=== PATIENT | female | born 1945 | race Caucasian/White ===

== ENCOUNTER 2020-08-28 11:13 | Inpatient (IN) | payer OTHER ==
[2020-08-28 11:42] VITALS: BMI 21.0
[2020-08-28] MEDS ORDERED: ACETAMINOPHEN 1000 MG/100 ML VIAL (NON FORMULARY) IVPB ONE (11:52)
[2020-08-28] MEDS ORDERED: morphine CARPU-JECT 2 MG/1 ML DISP.SYRIN IVPUSH ONE (12:01)
[2020-08-28] MEDS ORDERED: ACETAMINOPHEN INJECTION 100 ML IVPB ONE (12:08)
[2020-08-28] MEDS ORDERED: MORPHINE SULFATE 2 MG/ML VIAL ONE (12:08)
[2020-08-28 12:46] LABS: BASO % 0.3 % (0-2.0); EOS % 0.7 % (0-4.5); HEMATOCRIT 28.1 % (32.4-45.2); HEMOGLOBIN 9.7 GM/dL (10.7-15.3); LYMPH % 9.6 % (8-40); MCH 32.2 pg (25.7-33.7); MCHC 34.5 g/dl (32.0-36.0); MEAN CELL VOLUME 93.4 fl (80-96); MONO % 11.3 % (3.8-10.2); NEUT % 78.1 % (42.8-82.8); PLATELET COUNT 171 K/MM3 (134-434); WHITE BLOOD COUNT 9.8 K/mm3 (4.0-10.0)
[2020-08-28 12:54] LABS: INR 1.03 (0.83-1.09); PROTHROMBIN TIME (PATIENT) 12.6 SEC (9.7-13.0)
[2020-08-28 12:56] LABS: ACTIVATED PTT 31.4 SECONDS (25.2-36.5)
[2020-08-28 13:18] LABS: CHLORIDE 104 mmol/L (98-107); SODIUM 138 mmol/L (136-145)
[2020-08-28 13:20] LABS: CALCIUM 8.3 mg/dL (8.5-10.1)
[2020-08-28 13:21] LABS: ALBUMIN 2.6 g/dl (3.4-5.0); ANION GAP 4 MMOL/L (8-16); BLOOD UREA NITROGEN 16.9 mg/dL (7-18); CO2 30 mmol/L (21-32); GLUCOSE,RANDOM 178 mg/dL (74-106); MAGNESIUM 2.2 mg/dL (1.8-2.4)
[2020-08-28 13:24] LABS: CREATININE 0.4 mg/dL (0.55-1.3); SGOT/AST 25 U/L (15-37); SGPT/ALT 23 U/L (13-61)
[2020-08-28 13:25] LABS: BILIRUBIN,TOTAL 1.1 mg/dL (0.2-1); TOT PROT 5.8 g/dl (6.4-8.2)
[2020-08-28 13:26] LABS: ALK PHOS 52 U/L (45-117)
[2020-08-28] MEDS: INSULIN SLIDING SCALE (NOVOLOG) 1 VIAL SQ SCH (17:28)
[2020-08-29] MEDS: CARVEDILOL 6.25 MG TABLET (FP) PO SCH ×3 (00:08→22:04)
[2020-08-29] MEDS: HEPARIN NA (PORCINE) 5,000 UNITS/ML 1ML VIAL SQ SCH ×3 (00:08→22:04)
[2020-08-29] MEDS: GABAPENTIN 300 MG CAPSULE PO SCH ×4 (00:08→22:04)
[2020-08-29] MEDS: DIVALPROEX NA *ER* EXTEND REL 250 MG TABLET.SA PO SCH ×3 (00:08→22:04)
[2020-08-29] MEDS: ACETAMINOPHEN 325 MG TABLET (FP) PO PRN ×2 (00:09→22:05)
[2020-08-29] MEDS: INSULIN SLIDING SCALE (NOVOLOG) 1 VIAL SQ SCH ×5 (00:20→22:36)
[2020-08-29] MEDS: traMADol HCL 50 MG TABLET PO PRN ×3 (01:12→16:28)
[2020-08-29] MEDS ORDERED: DEXTROSE 50%-WATER - 25 GM/50 ML VIAL IVPUSH ONE (06:46)
[2020-08-29] MEDS ORDERED: glipiZIDE-XL 2.5 MG TAB.ER.24 PO SCH (07:00)
[2020-08-29] MEDS ORDERED: DEXTROSE 50%-WATER - 25 GM/50 ML VIAL ONE (07:22)
[2020-08-29 07:29] LABS: HEMATOCRIT 28.1 % (32.4-45.2); HEMOGLOBIN 9.5 GM/dL (10.7-15.3); MCH 31.9 pg (25.7-33.7); MCHC 33.8 g/dl (32.0-36.0); MEAN CELL VOLUME 94.5 fl (80-96); MEAN PLT VOLUME 7.5 fl (7.5-11.1); PLATELET COUNT 213 K/MM3 (134-434); RBC 2.97 M/mm3 (3.60-5.2); WHITE BLOOD COUNT 6.9 K/mm3 (4.0-10.0)
[2020-08-29 08:01] LABS: ALBUMIN 2.6 g/dl (3.4-5.0); CALCIUM 8.4 mg/dL (8.5-10.1)
[2020-08-29 08:02] LABS: BLOOD UREA NITROGEN 19.5 mg/dL (7-18)
[2020-08-29 08:03] LABS: CREATININE 0.5 mg/dL (0.55-1.3)
[2020-08-29 08:05] LABS: BILIRUBIN,TOTAL 1.1 mg/dL (0.2-1); TOT PROT 5.9 g/dl (6.4-8.2)
[2020-08-29] MEDS ORDERED: INSULIN (NOVOLOG) ASPART 100 UNITS/ML 10ML VIAL ONE (09:23)
[2020-08-29] MEDS: DEXTROSE 5%-LACTATED RINGERS 1,000 ML IV SCH (09:45)
[2020-08-29] MEDS: PANTOPRAZOLE 40 MG TABLET PO SCH (10:15)
[2020-08-30] MEDS: INSULIN SLIDING SCALE (NOVOLOG) 1 VIAL SQ SCH ×4 (06:25→23:48)
[2020-08-30] MEDS: GABAPENTIN 300 MG CAPSULE PO SCH ×3 (06:27→23:43)
[2020-08-30] MEDS: PANTOPRAZOLE 40 MG TABLET PO SCH (09:31)
[2020-08-30] MEDS: DEXTROSE 5%-LACTATED RINGERS 1,000 ML IV SCH ×2 (09:31→19:35)
[2020-08-30] MEDS: CARVEDILOL 6.25 MG TABLET (FP) PO SCH ×2 (09:31→23:43)
[2020-08-30] MEDS: DIVALPROEX NA *ER* EXTEND REL 250 MG TABLET.SA PO SCH ×2 (09:31→23:44)
[2020-08-30] MEDS: HEPARIN NA (PORCINE) 5,000 UNITS/ML 1ML VIAL SQ SCH (09:32)
[2020-08-30] MEDS ORDERED: MIDAZOLAM HCL 2 MG/2 ML SINGLE DOSE VIAL ONE (14:44)
[2020-08-30] MEDS ORDERED: ceFAZolin SODIUM 1 GM VIAL IVPB ONE (15:25)
[2020-08-30] MEDS ORDERED: TRANEXAMIC ACID 1000 MG/10 ML VIAL ONE (15:35)
[2020-08-30] MEDS ORDERED: ONDANSETRON 4 MG/2 ML VIAL IVPUSH PRN (18:19)
[2020-08-30] MEDS ORDERED: PROMETHAZINE HCL 25 MG/1 ML VIAL IVPUSH PRN (18:19)
[2020-08-30] MEDS: oxyCODONE HCL 5 MG TABLET PO PRN (23:44)
[2020-08-31] MEDS ORDERED: ceFAZolin SODIUM 1 GM VIAL ONE ×3 (01:59→18:15)
[2020-08-31] MEDS ORDERED: DEXTROSE 5%-WATER - 50 ML IVPB ONE ×3 (01:59→18:15)
[2020-08-31] MEDS: CEFAZOLIN 1 GM in DEXTROSE 5%-WATER - 1 GM/50 ML IVPB IVPB SCH ×3 (02:32→18:23)
[2020-08-31] MEDS: DEXTROSE 5%-LACTATED RINGERS 1,000 ML IV SCH (05:41)
[2020-08-31] MEDS: GABAPENTIN 300 MG CAPSULE PO SCH ×3 (06:33→21:25)
[2020-08-31] MEDS: INSULIN SLIDING SCALE (NOVOLOG) 1 VIAL SQ SCH ×4 (06:33→21:39)
[2020-08-31] MEDS: oxyCODONE HCL 5 MG TABLET PO PRN (06:36)
[2020-08-31 07:58] LABS: HEMATOCRIT 23.5 % (32.4-45.2); HEMOGLOBIN 7.7 GM/dL (10.7-15.3); MCH 31.2 pg (25.7-33.7); MEAN CELL VOLUME 94.5 fl (80-96); MEAN PLT VOLUME 7.4 fl (7.5-11.1); PLATELET COUNT 234 K/MM3 (134-434); RBC 2.49 M/mm3 (3.60-5.2); RDW 14.2 % (11.6-15.6); WHITE BLOOD COUNT 9.9 K/mm3 (4.0-10.0)
[2020-08-31 08:12] LABS: ALBUMIN 2.2 g/dl (3.4-5.0); BLOOD UREA NITROGEN 6.4 mg/dL (7-18); CALCIUM 7.9 mg/dL (8.5-10.1)
[2020-08-31 08:16] LABS: CREATININE 0.5 mg/dL (0.55-1.3)
[2020-08-31 08:18] LABS: TOT PROT 4.8 g/dl (6.4-8.2)
[2020-08-31] MEDS: PANTOPRAZOLE 40 MG TABLET PO SCH (09:50)
[2020-08-31] MEDS: CARVEDILOL 6.25 MG TABLET (FP) PO SCH ×2 (09:50→21:38)
[2020-08-31] MEDS: CHOLECALCIFEROL (VIT D3) 1,000 UNIT (25 MCG) TABLET PO SCH (09:50)
[2020-08-31] MEDS: DIVALPROEX NA *ER* EXTEND REL 250 MG TABLET.SA PO SCH ×2 (09:51→21:27)
[2020-08-31] MEDS ORDERED: FERRIC CARBOXYMALTOSE 750 MG in SODIUM CHLORIDE 250 ML IVPB ONE (13:25)
[2020-08-31] MEDS: ENOXAPARIN NA (PORCINE) 40 MG/0.4 ML DISP.SYRIN SQ SCH (18:23)
[2020-08-31] MEDS ORDERED: SODIUM CHLORIDE 250 ML IV STA (21:19)
[2020-08-31] MEDS: traMADol HCL 50 MG TABLET PO PRN (21:25)
[2020-09-01] MEDS ORDERED: SODIUM CHLORIDE 1,000 ML IV SCH (01:30)
[2020-09-01] MEDS: INSULIN SLIDING SCALE (NOVOLOG) 1 VIAL SQ SCH ×4 (06:06→22:59)
[2020-09-01] MEDS: GABAPENTIN 300 MG CAPSULE PO SCH ×3 (06:07→21:53)
[2020-09-01 07:25] LABS: MCH 31.8 pg (25.7-33.7); MCHC 34.1 g/dl (32.0-36.0); MEAN CELL VOLUME 93.3 fl (80-96); MEAN PLT VOLUME 7.4 fl (7.5-11.1); PLATELET COUNT 213 K/MM3 (134-434); RBC 2.16 M/mm3 (3.60-5.2); RDW 14.5 % (11.6-15.6); WHITE BLOOD COUNT 14.3 K/mm3 (4.0-10.0)
[2020-09-01 07:43] LABS: HEMOGLOBIN 6.9 GM/dL (10.7-15.3)
[2020-09-01 07:44] LABS: HEMATOCRIT 20.1 % (32.4-45.2)
[2020-09-01 08:25] LABS: BLOOD UREA NITROGEN 6.6 mg/dL (7-18)
[2020-09-01 08:29] LABS: CREATININE 0.4 mg/dL (0.55-1.3)
[2020-09-01] MEDS: traMADol HCL 50 MG TABLET PO PRN ×2 (08:54→18:04)
[2020-09-01] MEDS: PANTOPRAZOLE 40 MG TABLET PO SCH (09:01)
[2020-09-01] MEDS: CARVEDILOL 6.25 MG TABLET (FP) PO SCH (09:01)
[2020-09-01] MEDS: ENOXAPARIN NA (PORCINE) 40 MG/0.4 ML DISP.SYRIN SQ SCH (09:01)
[2020-09-01] MEDS: CHOLECALCIFEROL (VIT D3) 1,000 UNIT (25 MCG) TABLET PO SCH (09:01)
[2020-09-01] MEDS: DIVALPROEX NA *ER* EXTEND REL 250 MG TABLET.SA PO SCH ×2 (09:01→21:53)
[2020-09-01] MEDS ORDERED: FUROSEMIDE 40 MG/4 ML INJECTABLE VIAL IVPUSH ONE (10:45)
[2020-09-01] MEDS ORDERED: POTASSIUM CHLORIDE TABS 10 MEQ TABLET.ER (FP) PO ONE (11:00)
[2020-09-01] MEDS ORDERED: KCL 10 MEQ IVPB 10 MEQ/100 ML INFUS.BAG IVPB SCH (11:00)
[2020-09-01] MEDS: ACETAMINOPHEN 325 MG TABLET (FP) PO PRN (21:53)
[2020-09-02] MEDS: CARVEDILOL 6.25 MG TABLET (FP) PO SCH ×3 (00:17→22:38)
[2020-09-02] MEDS: GABAPENTIN 300 MG CAPSULE PO SCH ×3 (06:43→22:38)
[2020-09-02] MEDS: INSULIN SLIDING SCALE (NOVOLOG) 1 VIAL SQ SCH ×4 (06:48→22:42)
[2020-09-02 07:36] LABS: HEMATOCRIT 35.8 % (32.4-45.2); HEMOGLOBIN 12.3 GM/dL (10.7-15.3); MCH 31.6 pg (25.7-33.7); MCHC 34.3 g/dl (32.0-36.0); MEAN PLT VOLUME 7.2 fl (7.5-11.1); PLATELET COUNT 198 K/MM3 (134-434); RBC 3.89 M/mm3 (3.60-5.2); RDW 15.1 % (11.6-15.6); WHITE BLOOD COUNT 12.3 K/mm3 (4.0-10.0)
[2020-09-02 08:02] LABS: CALCIUM 8.4 mg/dL (8.5-10.1)
[2020-09-02 08:03] LABS: BLOOD UREA NITROGEN 6.6 mg/dL (7-18)
[2020-09-02 08:06] LABS: CREATININE 0.3 mg/dL (0.55-1.3)
[2020-09-02] MEDS: MULTIVIT-MINERALS ORAL LIQUID PO SCH (09:00)
[2020-09-02] MEDS: DIVALPROEX NA *ER* EXTEND REL 250 MG TABLET.SA PO SCH ×2 (09:01→22:38)
[2020-09-02] MEDS: traMADol HCL 50 MG TABLET PO PRN ×3 (09:02→22:39)
[2020-09-02] MEDS: ENOXAPARIN NA (PORCINE) 40 MG/0.4 ML DISP.SYRIN SQ SCH (09:02)
[2020-09-02] MEDS: CHOLECALCIFEROL (VIT D3) 1,000 UNIT (25 MCG) TABLET PO SCH (09:03)
[2020-09-02] MEDS: PANTOPRAZOLE 40 MG TABLET PO SCH (09:03)
[2020-09-02] MEDS: ACETAMINOPHEN 325 MG TABLET (FP) PO PRN ×2 (12:18→20:16)
[2020-09-02] MEDS ORDERED: SODIUM CHLORIDE 250 ML IV ONE (15:45)
[2020-09-02] MEDS: SODIUM CHLORIDE 1,000 ML IV SCH (15:50)
[2020-09-02 19:16] LABS: EPI CELLS 29 /uL (0-25.1); HYALINE CASTS 12 /uL (0-3.1); PH,URINE 5.5 (5.0-8.0); URINE APPEARANCE CLOUDY; URINE BILIRUBIN 1+ (NEGATIVE); URINE COLOR ORANGE; URINE GLUCOSE (UA) NEGATIVE (NEGATIVE); URINE KETONE NEGATIVE (NEGATIVE); URINE LEUK ESTERASE 1+ (NEGATIVE); URINE NITRITE POSITIVE (NEGATIVE); URINE PROTEIN TRACE (NEGATIVE); URINE RBC 9 /uL (0-23.9); URINE WBC 162 /uL (0-25.8)
[2020-09-02 20:22] LABS: URINE BACTERIA 24.8 /uL (0-1359)
[2020-09-03] MEDS: traMADol HCL 50 MG TABLET PO PRN ×3 (03:35→17:00)
[2020-09-03] MEDS: SODIUM CHLORIDE 1,000 ML IV SCH (04:00)
[2020-09-03] MEDS: INSULIN SLIDING SCALE (NOVOLOG) 1 VIAL SQ SCH ×4 (06:13→22:34)
[2020-09-03] MEDS: GABAPENTIN 300 MG CAPSULE PO SCH ×3 (06:13→22:23)
[2020-09-03 07:57] LABS: HEMATOCRIT 35.2 % (32.4-45.2); MCH 31.4 pg (25.7-33.7); MCHC 34.1 g/dl (32.0-36.0); MEAN CELL VOLUME 92.3 fl (80-96); MEAN PLT VOLUME 7.2 fl (7.5-11.1); PLATELET COUNT 198 K/MM3 (134-434); RBC 3.81 M/mm3 (3.60-5.2); WHITE BLOOD COUNT 11.2 K/mm3 (4.0-10.0)
[2020-09-03 08:11] LABS: ALBUMIN 1.8 g/dl (3.4-5.0)
[2020-09-03 08:12] LABS: BLOOD UREA NITROGEN 12.2 mg/dL (7-18); CALCIUM 7.9 mg/dL (8.5-10.1)
[2020-09-03 08:14] LABS: CREATININE 0.3 mg/dL (0.55-1.3)
[2020-09-03 08:16] LABS: BILIRUBIN,TOTAL 1.4 mg/dL (0.2-1); TOT PROT 4.5 g/dl (6.4-8.2)
[2020-09-03] MEDS: ENOXAPARIN NA (PORCINE) 40 MG/0.4 ML DISP.SYRIN SQ SCH (09:32)
[2020-09-03] MEDS: CHOLECALCIFEROL (VIT D3) 1,000 UNIT (25 MCG) TABLET PO SCH (09:33)
[2020-09-03] MEDS: PANTOPRAZOLE 40 MG TABLET PO SCH (09:33)
[2020-09-03] MEDS: CARVEDILOL 6.25 MG TABLET (FP) PO SCH ×2 (09:33→22:21)
[2020-09-03] MEDS: MULTIVIT-MINERALS ORAL LIQUID PO SCH (09:34)
[2020-09-03] MEDS: DIVALPROEX NA *ER* EXTEND REL 250 MG TABLET.SA PO SCH ×2 (09:34→22:24)
[2020-09-03] MEDS ORDERED: POTASSIUM CHLORIDE TABS 20 MEQ TABLET.ER (FP) PO ONE (11:00)
[2020-09-03] MEDS ORDERED: ONDANSETRON 4 MG/2 ML VIAL IVPUSH PRN (15:49)
[2020-09-03] MEDS ORDERED: ALBUTEROL SO4 2.5/IPRATROPIUM 0.5 INH SOL 3 ML VIAL.NEB. NEB PRN (16:15)
[2020-09-03] MEDS: ACETAMINOPHEN 325 MG TABLET (FP) PO PRN (22:29)
[2020-09-04] MEDS: GABAPENTIN 300 MG CAPSULE PO SCH ×3 (06:48→22:35)
[2020-09-04] MEDS: INSULIN SLIDING SCALE (NOVOLOG) 1 VIAL SQ SCH ×4 (06:54→22:36)
[2020-09-04] MEDS: CHOLECALCIFEROL (VIT D3) 1,000 UNIT (25 MCG) TABLET PO SCH (09:12)
[2020-09-04] MEDS: traMADol HCL 50 MG TABLET PO PRN (09:12)
[2020-09-04] MEDS: CARVEDILOL 6.25 MG TABLET (FP) PO SCH ×2 (09:12→22:35)
[2020-09-04] MEDS: PANTOPRAZOLE 40 MG TABLET PO SCH (09:12)
[2020-09-04] MEDS: DIVALPROEX NA *ER* EXTEND REL 250 MG TABLET.SA PO SCH ×2 (09:14→22:36)
[2020-09-04] MEDS: ENOXAPARIN NA (PORCINE) 40 MG/0.4 ML DISP.SYRIN SQ SCH (09:24)
[2020-09-04] MEDS: MULTIVIT-MINERALS ORAL LIQUID PO SCH (09:29)
[2020-09-04 12:44] LABS: BASO % 0.2 % (0-2.0); HEMATOCRIT 33.5 % (32.4-45.2); HEMOGLOBIN 10.9 GM/dL (10.7-15.3); LYMPH % 9.1 % (8-40); MCH 31.1 pg (25.7-33.7); MCHC 32.5 g/dl (32.0-36.0); MEAN CELL VOLUME 95.6 fl (80-96); MEAN PLT VOLUME 7.5 fl (7.5-11.1); MONO % 11.3 % (3.8-10.2); NEUT % 76.4 % (42.8-82.8); PLATELET COUNT 185 K/MM3 (134-434); RDW 15.4 % (11.6-15.6); WHITE BLOOD COUNT 6.6 K/mm3 (4.0-10.0)
[2020-09-04 13:05] LABS: BLOOD UREA NITROGEN 12.3 mg/dL (7-18)
[2020-09-04 13:09] LABS: CREATININE 0.4 mg/dL (0.55-1.3)
[2020-09-04] MEDS ORDERED: POTASSIUM CHLORIDE TABS 20 MEQ TABLET.ER (FP) PO ONE (13:56)
[2020-09-05] MEDS: GABAPENTIN 300 MG CAPSULE PO SCH ×3 (06:34→22:53)
[2020-09-05] MEDS: INSULIN SLIDING SCALE (NOVOLOG) 1 VIAL SQ SCH ×4 (06:35→22:57)
[2020-09-05] MEDS: traMADol HCL 50 MG TABLET PO PRN ×2 (08:06→18:42)
[2020-09-05 08:49] LABS: CALCIUM 8.1 mg/dL (8.5-10.1)
[2020-09-05 08:51] LABS: BLOOD UREA NITROGEN 8.3 mg/dL (7-18)
[2020-09-05 08:54] LABS: CREATININE 0.2 mg/dL (0.55-1.3)
[2020-09-05] MEDS ORDERED: PT OWN MED DRAWER 7, Y5N ONE ×2 (09:37→22:51)
[2020-09-05] MEDS: PANTOPRAZOLE 40 MG TABLET PO SCH (09:54)
[2020-09-05] MEDS: CHOLECALCIFEROL (VIT D3) 1,000 UNIT (25 MCG) TABLET PO SCH (09:55)
[2020-09-05] MEDS: DIVALPROEX NA *ER* EXTEND REL 250 MG TABLET.SA PO SCH ×2 (09:55→22:53)
[2020-09-05] MEDS: ENOXAPARIN NA (PORCINE) 40 MG/0.4 ML DISP.SYRIN SQ SCH (09:55)
[2020-09-05] MEDS: CARVEDILOL 6.25 MG TABLET (FP) PO SCH ×2 (09:55→22:53)
[2020-09-05] MEDS: ACETAMINOPHEN 325 MG TABLET (FP) PO PRN (12:03)
[2020-09-05] MEDS: MULTIVIT-MINERALS ORAL LIQUID PO SCH (13:51)
[2020-09-06] MEDS: GABAPENTIN 300 MG CAPSULE PO SCH (05:32)
[2020-09-06] MEDS: INSULIN SLIDING SCALE (NOVOLOG) 1 VIAL SQ SCH ×2 (06:10→11:44)
[2020-09-06 07:40] VITALS: BP 141/76; PULSE 88; TEMP 97.7
[2020-09-06] MEDS: ENOXAPARIN NA (PORCINE) 40 MG/0.4 ML DISP.SYRIN SQ SCH (08:59)
[2020-09-06] MEDS: CHOLECALCIFEROL (VIT D3) 1,000 UNIT (25 MCG) TABLET PO SCH (09:00)
[2020-09-06] MEDS: CARVEDILOL 6.25 MG TABLET (FP) PO SCH (09:00)
[2020-09-06] MEDS: PANTOPRAZOLE 40 MG TABLET PO SCH (09:00)
[2020-09-06] MEDS: DIVALPROEX NA *ER* EXTEND REL 250 MG TABLET.SA PO SCH (09:01)
[2020-09-06] MEDS: MULTIVIT-MINERALS ORAL LIQUID PO SCH (09:10)
== END 2020-09-06 12:44 | disposition home health service (06) | DRG 522 ==
LOC: JER 11:13 → JERBED 15:14 → J7W 23:52
PROVIDERS: ADMIT Family Medicine; ATTEND Family Medicine
PROC: 0SRS0J9 Replacement of Left Hip Joint, Femoral Surface with Synthetic Substitute, Cemented, Open Approach (ICD-10-PCS; principal; 2020-08-30 14:30)
PROC: 30233N1 Transfusion of Nonautologous Red Blood Cells into Peripheral Vein, Percutaneous Approach (ICD-10-PCS; 2020-09-01)
DX: S72.112A Displaced fracture of greater trochanter of left femur, initial encounter for closed fracture (principal); J98.11 Atelectasis; D62 Acute posthemorrhagic anemia; J95.89 Other postprocedural complications and disorders of respiratory system, not elsewhere classified; S72.092A Other fracture of head and neck of left femur, initial encounter for closed fracture; S72.122A Displaced fracture of lesser trochanter of left femur, initial encounter for closed fracture; E11.9 Type 2 diabetes mellitus without complications; I10 Essential (primary) hypertension; E78.5 Hyperlipidemia, unspecified; K21.9 Gastro-esophageal reflux disease without esophagitis; F03.90 Unspecified dementia, unspecified severity, without behavioral disturbance, psychotic disturbance, mood disturbance, and anxiety; K59.09 Other constipation; E87.6 Hypokalemia; R50.82 Postprocedural fever; R09.02 Hypoxemia; Z74.01 Bed confinement status; R00.0 Tachycardia, unspecified; Z88.0 Allergy status to penicillin; Y83.8 Other surgical procedures as the cause of abnormal reaction of the patient, or of later complication, without mention of misadventure at the time of the procedure; I69.322 Dysarthria following cerebral infarction
CPT/HCPCS: 36415; 36430; 36511; 70450-TC; 71045-TC-FY; 72125-TC; 72192-TC; 73523-TC-FY; 73562-TC-LT-FY; 74019-TC-FY; 80048; 80053; 81003; 82550; 82962; 83036; 83540; 83550; 83735; 84100; 84484; 85025; 85027; 85610; 85730; 86850; 86900; 86901; 86922; 87040; 87086; 88305-TC; 88311-TC; 93005; 93010; 93306-TC; 93880-TC; 94640; 94760; 94761; 97116-GP; 97162-GP; 99285-25; C9803; J0131; J1439; J1644; P9038; P9058; U0003; U0005

== ENCOUNTER 2020-10-13 11:21 | Inpatient (IN) | payer OTHER ==
[2020-10-13 12:43] VITALS: BMI 18.0
[2020-10-13] MEDS ORDERED: SODIUM CHLORIDE 500 ML IV STA (13:08)
[2020-10-13] MEDS ORDERED: traMADol HCL 50 MG TABLET PO PRN (14:40)
[2020-10-13] MEDS ORDERED: D5-1/2NS+20 MEQ KCL - 20 MEQ/1,000 ML INFUS.BAG IV SCH (14:45)
[2020-10-13 14:47] LABS: HEMATOCRIT 39.3 % (32.4-45.2); HEMOGLOBIN 13.4 GM/dL (10.7-15.3); LYMPH % 3.4 % (8-40); MEAN PLT VOLUME 6.9 fl (7.5-11.1); MONO % 6.1 % (3.8-10.2); NEUT % 90.5 % (42.8-82.8); PLATELET COUNT 240 K/MM3 (134-434); RBC 4.18 M/mm3 (3.60-5.2); RDW 14.5 % (11.6-15.6); WHITE BLOOD COUNT 18.8 K/mm3 (4.0-10.0)
[2020-10-13 14:55] LABS: INR 1.16 (0.83-1.09); PROTHROMBIN TIME (PATIENT) 14.2 SEC (9.7-13.0)
[2020-10-13 14:57] LABS: ACTIVATED PTT 29.4 SECONDS (25.2-36.5)
[2020-10-13 15:03] LABS: EPI CELLS 14 /uL (0-25.1); HYALINE CASTS 11 /uL (0-3.1); PH,URINE 5.5 (5.0-8.0); URINE APPEARANCE TURBID; URINE BACTERIA 4516 /uL (0-1359); URINE BILIRUBIN 1+ (NEGATIVE); URINE COLOR DK YELLOW; URINE GLUCOSE (UA) NEGATIVE (NEGATIVE); URINE KETONE TRACE (NEGATIVE); URINE LEUK ESTERASE 1+ (NEGATIVE); URINE NITRITE POSITIVE (NEGATIVE); URINE PROTEIN 1+ (NEGATIVE); URINE RBC 8 /uL (0-23.9); URINE WBC 311 /uL (0-25.8)
[2020-10-13 15:18] LABS: ALBUMIN 2.5 g/dl (3.4-5.0); CALCIUM 8.6 mg/dL (8.5-10.1)
[2020-10-13 15:19] LABS: BLOOD UREA NITROGEN 19.7 mg/dL (7-18)
[2020-10-13 15:22] LABS: CREATININE 0.4 mg/dL (0.55-1.3)
[2020-10-13 15:23] LABS: BILIRUBIN,TOTAL 1.6 mg/dL (0.2-1); TOT PROT 6.3 g/dl (6.4-8.2)
[2020-10-13] MEDS ORDERED: CEFEPIME HCL/D5W 2 GM/50 ML BAG IVPB ONE (15:37)
[2020-10-13] MEDS ORDERED: VANCOMYCIN 1 GM in D5W (PRE-DOCKED) 1,000 MG/250 ML IVPB ONE (15:40)
[2020-10-13] MEDS ORDERED: CEFEPIME 2 GM/100 ML BAG IVPB ONE (16:09)
[2020-10-13] MEDS ORDERED: VANCOMYCIN 1 GRAM (PRE-DOCKED) 1,000 MG/250 ML BAG IVPB ONE (18:09)
[2020-10-13] MEDS: GABAPENTIN 300 MG CAPSULE PO SCH (21:15)
[2020-10-13] MEDS: CARVEDILOL 6.25 MG TABLET (FP) PO SCH (21:15)
[2020-10-13] MEDS: HEPARIN NA (PORCINE) 5,000 UNITS/ML 1ML VIAL SQ SCH (21:15)
[2020-10-13] MEDS: DIVALPROEX NA *ER* EXTEND REL 250 MG TABLET.SA PO SCH (21:15)
[2020-10-13] MEDS ORDERED: ATORVASTATIN CA 10 MG TABLET (FP) PO SCH (22:00)
[2020-10-14 08:37] LABS: BASO % 0.1 % (0-2.0); EOS % 0.1 % (0-4.5); HEMATOCRIT 32.6 % (32.4-45.2); HEMOGLOBIN 11.1 GM/dL (10.7-15.3); MCH 32.2 pg (25.7-33.7); MCHC 34.2 g/dl (32.0-36.0); MEAN CELL VOLUME 94.3 fl (80-96); MEAN PLT VOLUME 7.3 fl (7.5-11.1); MONO % 7.7 % (3.8-10.2); NEUT % 87.1 % (42.8-82.8); PLATELET COUNT 163 K/MM3 (134-434); RBC 3.46 M/mm3 (3.60-5.2); RDW 14.5 % (11.6-15.6); WHITE BLOOD COUNT 10.4 K/mm3 (4.0-10.0)
[2020-10-14 09:17] LABS: CALCIUM 7.9 mg/dL (8.5-10.1)
[2020-10-14 09:18] LABS: BLOOD UREA NITROGEN 14.8 mg/dL (7-18)
[2020-10-14 09:21] LABS: CREATININE 0.2 mg/dL (0.55-1.3)
[2020-10-14 09:22] LABS: BILIRUBIN,TOTAL 0.6 mg/dL (0.2-1); TOT PROT 4.9 g/dl (6.4-8.2)
[2020-10-14] MEDS ORDERED: CEFEPIME IVPB SCH (10:00)
[2020-10-14] MEDS ORDERED: WATER IVPB SCH (10:00)
[2020-10-14] MEDS ORDERED: DEXTROSE 5% IVPB SCH (10:00)
[2020-10-14] MEDS ORDERED: PANTOPRAZOLE 40 MG TABLET PO SCH (10:00)
[2020-10-14] MEDS ORDERED: PT OWN MED DRAWER 7, Y5N ONE ×4 (10:52→20:22)
[2020-10-14] MEDS ORDERED: DEXTROSE 5%-WATER 100 ML IVPB ONE ×2 (10:52→20:22)
[2020-10-14] MEDS ORDERED: CEFEPIME HCL 1 GM VIAL (RESTRICTED TO ID) ONE ×2 (10:52→20:22)
[2020-10-14] MEDS: CARVEDILOL 6.25 MG TABLET (FP) PO SCH ×2 (10:55→21:18)
[2020-10-14] MEDS: DIVALPROEX NA *ER* EXTEND REL 250 MG TABLET.SA PO SCH ×2 (10:55→21:02)
[2020-10-14] MEDS: GABAPENTIN 300 MG CAPSULE PO SCH ×2 (10:55→21:02)
[2020-10-14] MEDS: HEPARIN NA (PORCINE) 5,000 UNITS/ML 1ML VIAL SQ SCH ×2 (10:56→21:03)
[2020-10-14] MEDS: KCL 10 MEQ IVPB 10 MEQ/100 ML INFUS.BAG IVPB SCH ×2 (12:02→17:15)
[2020-10-14] MEDS ORDERED: LIDOCAINE HCL/PF 2% SDV 5ML VIAL ONE (12:51)
[2020-10-14] MEDS ORDERED: PROPOFOL 20 ML ONE (12:51)
[2020-10-14] MEDS ORDERED: ACETAMINOPHEN 500 MG TABLET (FP) PO PRN (13:46)
[2020-10-14] MEDS ORDERED: ONDANSETRON 4 MG/2 ML VIAL IVPUSH PRN (15:22)
[2020-10-14] MEDS ORDERED: LACTATED RINGERS SOLUTION 1,000 ML IV SCH (15:30)
[2020-10-14] MEDS: LIDOCAINE 5% TOPICAL PATCH TP SCH (17:14)
[2020-10-14] MEDS: D5-1/2NS+20 MEQ KCL - 20 MEQ/1,000 ML INFUS.BAG IV SCH ×2 (17:16→23:24)
[2020-10-14] MEDS: CEFEPIME 1 GM in DEXTROSE 5%-WATER 1 GM/100 ML BAG IVPB SCH (21:01)
[2020-10-14] MEDS: ATORVASTATIN CA 10 MG TABLET (FP) PO SCH (21:02)
[2020-10-14] MEDS: LIDOCAINE PATCH REMOVAL MC SCH (21:06)
[2020-10-14] MEDS: INSULIN SLIDING SCALE (NOVOLOG) 1 VIAL SQ SCH (21:25)
[2020-10-15] MEDS: INSULIN SLIDING SCALE (NOVOLOG) 1 VIAL SQ SCH ×4 (06:05→21:04)
[2020-10-15 08:17] LABS: EOS % 0.8 % (0-4.5); HEMATOCRIT 32.3 % (32.4-45.2); HEMOGLOBIN 10.7 GM/dL (10.7-15.3); MCH 31.2 pg (25.7-33.7); MEAN CELL VOLUME 94.6 fl (80-96); MEAN PLT VOLUME 7.4 fl (7.5-11.1); MONO % 10.2 % (3.8-10.2); PLATELET COUNT 148 K/MM3 (134-434); RBC 3.41 M/mm3 (3.60-5.2); RDW 14.4 % (11.6-15.6); WHITE BLOOD COUNT 8.1 K/mm3 (4.0-10.0)
[2020-10-15 08:54] LABS: ALBUMIN 1.9 g/dl (3.4-5.0); BLOOD UREA NITROGEN 8.9 mg/dL (7-18); CALCIUM 7.8 mg/dL (8.5-10.1)
[2020-10-15 08:58] LABS: CREATININE 0.2 mg/dL (0.55-1.3)
[2020-10-15 08:59] LABS: TOT PROT 4.7 g/dl (6.4-8.2)
[2020-10-15 09:00] LABS: BILIRUBIN,TOTAL 0.7 mg/dL (0.2-1)
[2020-10-15] MEDS ORDERED: PT OWN MED DRAWER 7, Y5N ONE ×2 (10:55→20:35)
[2020-10-15] MEDS ORDERED: CEFEPIME HCL 1 GM VIAL (RESTRICTED TO ID) ONE ×2 (10:55→20:35)
[2020-10-15] MEDS ORDERED: DEXTROSE 5%-WATER 100 ML IVPB ONE ×2 (10:56→20:35)
[2020-10-15] MEDS: CEFEPIME 1 GM in DEXTROSE 5%-WATER 1 GM/100 ML BAG IVPB SCH ×2 (11:00→21:01)
[2020-10-15] MEDS: LIDOCAINE 5% TOPICAL PATCH TP SCH (11:00)
[2020-10-15] MEDS: CARVEDILOL 6.25 MG TABLET (FP) PO SCH ×2 (11:01→21:01)
[2020-10-15] MEDS: PANTOPRAZOLE 40 MG TABLET PO SCH (11:01)
[2020-10-15] MEDS: HEPARIN NA (PORCINE) 5,000 UNITS/ML 1ML VIAL SQ SCH ×2 (11:01→21:00)
[2020-10-15] MEDS: GABAPENTIN 300 MG CAPSULE PO SCH ×2 (11:02→21:01)
[2020-10-15] MEDS: DIVALPROEX NA *ER* EXTEND REL 250 MG TABLET.SA PO SCH ×2 (11:02→21:01)
[2020-10-15] MEDS: SODIUM HYPOCHLORITE 0.25%- 473 ML BULK BOTTLE TP SCH (12:03)
[2020-10-15] MEDS: traMADol HCL 50 MG TABLET PO PRN (12:50)
[2020-10-15] MEDS: D5-1/2NS+20 MEQ KCL - 20 MEQ/1,000 ML INFUS.BAG IV SCH (15:11)
[2020-10-15] MEDS: ATORVASTATIN CA 10 MG TABLET (FP) PO SCH (21:01)
[2020-10-15] MEDS: LIDOCAINE PATCH REMOVAL MC SCH (21:01)
[2020-10-16] MEDS: INSULIN SLIDING SCALE (NOVOLOG) 1 VIAL SQ SCH ×3 (06:04→16:51)
[2020-10-16] MEDS: D5-1/2NS+20 MEQ KCL - 20 MEQ/1,000 ML INFUS.BAG IV SCH ×2 (07:03→23:16)
[2020-10-16] MEDS: LIDOCAINE 5% TOPICAL PATCH TP SCH (09:47)
[2020-10-16] MEDS: PANTOPRAZOLE 40 MG TABLET PO SCH (10:23)
[2020-10-16] MEDS: CARVEDILOL 6.25 MG TABLET (FP) PO SCH (10:23)
[2020-10-16] MEDS: DIVALPROEX NA *ER* EXTEND REL 250 MG TABLET.SA PO SCH (10:23)
[2020-10-16] MEDS: GABAPENTIN 300 MG CAPSULE PO SCH (10:23)
[2020-10-16] MEDS: SODIUM HYPOCHLORITE 0.25%- 473 ML BULK BOTTLE TP SCH (10:28)
[2020-10-16] MEDS ORDERED: DEXTROSE 5%-WATER 100 ML IVPB ONE ×2 (10:30→10:31)
[2020-10-16] MEDS ORDERED: CEFEPIME HCL 1 GM VIAL (RESTRICTED TO ID) ONE ×2 (10:30→10:31)
[2020-10-16] MEDS: CEFEPIME 1 GM in DEXTROSE 5%-WATER 1 GM/100 ML BAG IVPB SCH (10:34)
[2020-10-16] MEDS: HEPARIN NA (PORCINE) 5,000 UNITS/ML 1ML VIAL SQ SCH ×2 (10:35→22:43)
[2020-10-16] MEDS ORDERED: PT OWN MED DRAWER 7, Y5N ONE (20:43)
[2020-10-16] MEDS: LIDOCAINE PATCH REMOVAL MC SCH (22:43)
[2020-10-17] MEDS: CARVEDILOL 6.25 MG TABLET (FP) PO SCH ×3 (00:55→21:58)
[2020-10-17] MEDS: ATORVASTATIN CA 10 MG TABLET (FP) PO SCH ×2 (00:56→21:59)
[2020-10-17] MEDS: GABAPENTIN 300 MG CAPSULE PO SCH ×3 (00:56→21:59)
[2020-10-17] MEDS: DIVALPROEX NA *ER* EXTEND REL 250 MG TABLET.SA PO SCH (00:56)
[2020-10-17] MEDS: INSULIN SLIDING SCALE (NOVOLOG) 1 VIAL SQ SCH ×5 (00:57→21:59)
[2020-10-17 08:06] LABS: HEMATOCRIT 31.6 % (32.4-45.2); HEMOGLOBIN 10.7 GM/dL (10.7-15.3); MCH 31.4 pg (25.7-33.7); MCHC 33.7 g/dl (32.0-36.0); MEAN CELL VOLUME 93.2 fl (80-96); MEAN PLT VOLUME 7.7 fl (7.5-11.1); PLATELET COUNT 163 K/MM3 (134-434); RDW 14.4 % (11.6-15.6); WHITE BLOOD COUNT 6.3 K/mm3 (4.0-10.0)
[2020-10-17 08:31] LABS: CHLORIDE 100 mmol/L (98-107); SODIUM 141 mmol/L (136-145)
[2020-10-17 08:32] LABS: CALCIUM 7.3 mg/dL (8.5-10.1)
[2020-10-17 08:33] LABS: CO2 36 mmol/L (21-32); GLUCOSE,RANDOM 130 mg/dL (74-106); MAGNESIUM 1.8 mg/dL (1.8-2.4)
[2020-10-17 08:36] LABS: CREATININE < 0.2 mg/dL (0.55-1.3); PHOSPHOROUS 1.2 mg/dL (2.5-4.9)
[2020-10-17] MEDS ORDERED: cefTRIAXone SODIUM 1 GM VIAL ONE (08:57)
[2020-10-17] MEDS ORDERED: DEXTROSE 5%-WATER - 50 ML IVPB ONE (08:57)
[2020-10-17 08:59] LABS: ANION GAP 4 MMOL/L (8-16)
[2020-10-17] MEDS ORDERED: PT OWN MED DRAWER 7, Y5N ONE ×2 (09:00→09:34)
[2020-10-17] MEDS: CEFTRIAXONE 1 GM in DEXTROSE 5%-WATER - 50 ML IVPB SCH (09:08)
[2020-10-17] MEDS: PANTOPRAZOLE 40 MG TABLET PO SCH (09:08)
[2020-10-17] MEDS: HEPARIN NA (PORCINE) 5,000 UNITS/ML 1ML VIAL SQ SCH ×2 (09:08→21:58)
[2020-10-17] MEDS: traMADol HCL 50 MG TABLET PO PRN (09:18)
[2020-10-17] MEDS: LIDOCAINE 5% TOPICAL PATCH TP SCH (09:19)
[2020-10-17] MEDS: SODIUM HYPOCHLORITE 0.25%- 473 ML BULK BOTTLE TP SCH (09:38)
[2020-10-17] MEDS: KCL 10 MEQ IVPB 10 MEQ/100 ML INFUS.BAG IVPB SCH ×3 (09:40→12:33)
[2020-10-17] MEDS: DIVALPROEX SODIUM 125 MG SPRINKLE CAPS PO SCH ×2 (09:40→21:58)
[2020-10-17] MEDS: D5-1/2NS+20 MEQ KCL - 20 MEQ/1,000 ML INFUS.BAG IV SCH (14:54)
[2020-10-17 18:42] LABS: CALCIUM 7.4 mg/dL (8.5-10.1)
[2020-10-17 18:45] LABS: CREATININE 0.2 mg/dL (0.55-1.3)
[2020-10-17] MEDS: NAPH,MB-DB/K PH,MBDB POWDER PACKET PO SCH (21:59)
[2020-10-17] MEDS: LIDOCAINE PATCH REMOVAL MC SCH (22:02)
[2020-10-18] MEDS: D5-1/2NS+20 MEQ KCL - 20 MEQ/1,000 ML INFUS.BAG IV SCH ×3 (05:53→21:59)
[2020-10-18] MEDS: INSULIN SLIDING SCALE (NOVOLOG) 1 VIAL SQ SCH ×4 (06:55→21:36)
[2020-10-18 07:38] LABS: HEMATOCRIT 31.2 % (32.4-45.2); HEMOGLOBIN 10.4 GM/dL (10.7-15.3); MCH 31.1 pg (25.7-33.7); MCHC 33.3 g/dl (32.0-36.0); MEAN CELL VOLUME 93.2 fl (80-96); MEAN PLT VOLUME 7.4 fl (7.5-11.1); PLATELET COUNT 166 K/MM3 (134-434); RBC 3.34 M/mm3 (3.60-5.2); RDW 14.5 % (11.6-15.6); WHITE BLOOD COUNT 6.6 K/mm3 (4.0-10.0)
[2020-10-18 08:10] LABS: CHLORIDE 104 mmol/L (98-107); SODIUM 142 mmol/L (136-145)
[2020-10-18 08:13] LABS: ANION GAP 5 MMOL/L (8-16); CO2 34 mmol/L (21-32)
[2020-10-18 08:14] LABS: CALCIUM 7.3 mg/dL (8.5-10.1); GLUCOSE,RANDOM 131 mg/dL (74-106); MAGNESIUM 1.8 mg/dL (1.8-2.4)
[2020-10-18 08:17] LABS: PHOSPHOROUS 1.7 mg/dL (2.5-4.9)
[2020-10-18 08:18] LABS: CREATININE 0.2 mg/dL (0.55-1.3)
[2020-10-18 08:31] LABS: BLOOD UREA NITROGEN 2.2 mg/dL (7-18)
[2020-10-18] MEDS ORDERED: cefTRIAXone SODIUM 1 GM VIAL ONE (09:48)
[2020-10-18] MEDS ORDERED: DEXTROSE 5%-WATER - 50 ML IVPB ONE (09:49)
[2020-10-18] MEDS: NAPH,MB-DB/K PH,MBDB POWDER PACKET PO SCH ×2 (09:54→21:34)
[2020-10-18] MEDS: DIVALPROEX SODIUM 125 MG SPRINKLE CAPS PO SCH ×2 (09:54→21:34)
[2020-10-18] MEDS: LIDOCAINE 5% TOPICAL PATCH TP SCH (09:54)
[2020-10-18] MEDS: HEPARIN NA (PORCINE) 5,000 UNITS/ML 1ML VIAL SQ SCH ×2 (09:54→21:34)
[2020-10-18] MEDS: GABAPENTIN 300 MG CAPSULE PO SCH ×2 (09:55→21:34)
[2020-10-18] MEDS: PANTOPRAZOLE 40 MG TABLET PO SCH (09:55)
[2020-10-18] MEDS: CARVEDILOL 6.25 MG TABLET (FP) PO SCH ×2 (09:55→21:34)
[2020-10-18] MEDS: SODIUM HYPOCHLORITE 0.25%- 473 ML BULK BOTTLE TP SCH (09:55)
[2020-10-18] MEDS: CEFTRIAXONE 1 GM in DEXTROSE 5%-WATER - 50 ML IVPB SCH (09:55)
[2020-10-18] MEDS: ATORVASTATIN CA 10 MG TABLET (FP) PO SCH (21:34)
[2020-10-18] MEDS: LIDOCAINE PATCH REMOVAL MC SCH (21:34)
[2020-10-19] MEDS: INSULIN SLIDING SCALE (NOVOLOG) 1 VIAL SQ SCH ×4 (06:00→21:10)
[2020-10-19] MEDS ORDERED: PT OWN MED DRAWER 7, Y5N ONE ×3 (08:28→17:03)
[2020-10-19] MEDS ORDERED: DEXTROSE 5%-WATER - 50 ML IVPB ONE (11:06)
[2020-10-19] MEDS ORDERED: cefTRIAXone SODIUM 1 GM VIAL ONE (11:06)
[2020-10-19] MEDS: DIVALPROEX SODIUM 125 MG SPRINKLE CAPS PO SCH ×2 (11:09→21:01)
[2020-10-19] MEDS: CARVEDILOL 6.25 MG TABLET (FP) PO SCH ×2 (11:09→21:01)
[2020-10-19] MEDS: LIDOCAINE 5% TOPICAL PATCH TP SCH (11:10)
[2020-10-19] MEDS: SODIUM HYPOCHLORITE 0.25%- 473 ML BULK BOTTLE TP SCH (11:10)
[2020-10-19] MEDS: CEFTRIAXONE 1 GM in DEXTROSE 5%-WATER - 50 ML IVPB SCH (11:10)
[2020-10-19] MEDS: PANTOPRAZOLE 40 MG TABLET PO SCH (11:11)
[2020-10-19] MEDS: NAPH,MB-DB/K PH,MBDB POWDER PACKET PO SCH ×2 (11:11→21:02)
[2020-10-19] MEDS: HEPARIN NA (PORCINE) 5,000 UNITS/ML 1ML VIAL SQ SCH ×2 (11:11→21:01)
[2020-10-19] MEDS: GABAPENTIN 300 MG CAPSULE PO SCH ×2 (11:11→21:01)
[2020-10-19] MEDS: D5-1/2NS+20 MEQ KCL - 20 MEQ/1,000 ML INFUS.BAG IV SCH (17:12)
[2020-10-19] MEDS: ATORVASTATIN CA 10 MG TABLET (FP) PO SCH (21:01)
[2020-10-19] MEDS: LIDOCAINE PATCH REMOVAL MC SCH (21:58)
[2020-10-20] MEDS: D5-1/2NS+20 MEQ KCL - 20 MEQ/1,000 ML INFUS.BAG IV SCH ×2 (02:11→17:09)
[2020-10-20] MEDS: INSULIN SLIDING SCALE (NOVOLOG) 1 VIAL SQ SCH ×4 (06:14→21:03)
[2020-10-20] MEDS ORDERED: DEXTROSE 5%-WATER - 50 ML IVPB ONE (10:47)
[2020-10-20] MEDS ORDERED: cefTRIAXone SODIUM 1 GM VIAL ONE (10:47)
[2020-10-20] MEDS: GABAPENTIN 300 MG CAPSULE PO SCH ×2 (11:08→21:06)
[2020-10-20] MEDS: HEPARIN NA (PORCINE) 5,000 UNITS/ML 1ML VIAL SQ SCH ×2 (11:09→21:06)
[2020-10-20] MEDS: DIVALPROEX SODIUM 125 MG SPRINKLE CAPS PO SCH ×2 (11:09→21:06)
[2020-10-20] MEDS: NAPH,MB-DB/K PH,MBDB POWDER PACKET PO SCH ×2 (11:09→21:06)
[2020-10-20] MEDS: PANTOPRAZOLE 40 MG TABLET PO SCH (11:09)
[2020-10-20] MEDS: CARVEDILOL 6.25 MG TABLET (FP) PO SCH ×2 (11:09→21:06)
[2020-10-20] MEDS: CEFTRIAXONE 1 GM in DEXTROSE 5%-WATER - 50 ML IVPB SCH (11:10)
[2020-10-20] MEDS: SODIUM HYPOCHLORITE 0.25%- 473 ML BULK BOTTLE TP SCH (12:27)
[2020-10-20] MEDS: LIDOCAINE 5% TOPICAL PATCH TP SCH (12:34)
[2020-10-20] MEDS: ATORVASTATIN CA 10 MG TABLET (FP) PO SCH (21:06)
[2020-10-20] MEDS: LIDOCAINE PATCH REMOVAL MC SCH (21:17)
[2020-10-21] MEDS: INSULIN SLIDING SCALE (NOVOLOG) 1 VIAL SQ SCH ×2 (06:33→11:41)
[2020-10-21] MEDS ORDERED: PT OWN MED DRAWER 7, Y5N ONE (10:51)
[2020-10-21] MEDS: DIVALPROEX SODIUM 125 MG SPRINKLE CAPS PO SCH (10:55)
[2020-10-21] MEDS: CARVEDILOL 6.25 MG TABLET (FP) PO SCH (10:55)
[2020-10-21] MEDS: GABAPENTIN 300 MG CAPSULE PO SCH (10:56)
[2020-10-21] MEDS: NAPH,MB-DB/K PH,MBDB POWDER PACKET PO SCH (10:56)
[2020-10-21] MEDS: HEPARIN NA (PORCINE) 5,000 UNITS/ML 1ML VIAL SQ SCH (10:57)
[2020-10-21] MEDS: PANTOPRAZOLE 40 MG TABLET PO SCH (10:57)
[2020-10-21] MEDS: SODIUM HYPOCHLORITE 0.25%- 473 ML BULK BOTTLE TP SCH (10:58)
[2020-10-21] MEDS: LIDOCAINE 5% TOPICAL PATCH TP SCH (10:58)
[2020-10-21] MEDS ORDERED: DEXTROSE 5%-WATER - 50 ML IVPB ONE (11:10)
[2020-10-21] MEDS ORDERED: cefTRIAXone SODIUM 1 GM VIAL ONE (11:10)
[2020-10-21 11:49] VITALS: BP 138/60; PULSE 106; TEMP 97.6
[2020-10-21] MEDS: CEFTRIAXONE 1 GM in DEXTROSE 5%-WATER - 50 ML IVPB SCH (13:55)
== END 2020-10-21 15:46 | DRG 580 ==
LOC: JER 11:21 → JERBED 15:28 → J8W 18:38
PROVIDERS: ADMIT Family Medicine; ATTEND Family Medicine
PROC: 0KBN0ZZ Excision of Right Hip Muscle, Open Approach (ICD-10-PCS; 2020-10-14)
PROC: 0KBP0ZZ Excision of Left Hip Muscle, Open Approach (ICD-10-PCS; principal; 2020-10-14 14:00)
PROC: 02HV33Z Insertion of Infusion Device into Superior Vena Cava, Percutaneous Approach (ICD-10-PCS; 2020-10-21)
DX: L89.153 Pressure ulcer of sacral region, stage 3 (principal); F03.91 Unspecified dementia, unspecified severity, with behavioral disturbance; M86.9 Osteomyelitis, unspecified; I69.322 Dysarthria following cerebral infarction; E11.9 Type 2 diabetes mellitus without complications; I10 Essential (primary) hypertension; E78.5 Hyperlipidemia, unspecified; D72.829 Elevated white blood cell count, unspecified
CPT/HCPCS: 36415; 36569; 71045-TC-FY; 74230-TC-FY; 76705-TC; 77001-TC-FY; 80048; 80053; 81003; 82550; 82962; 83735; 84100; 85025; 85027; 85610; 85730; 86140; 86850; 86900; 86901; 87040; 87070; 87086; 87186; 87205; 92611-GN; 93005; 93010; 94760; 99285-25; C1751; C9803; J1644; U0003; U0005

== ENCOUNTER 2020-10-29 12:13 | Inpatient (IN) | payer OTHER ==
[2020-10-29] MEDS ORDERED: SODIUM CHLORIDE 0.9% 500 ML INFUS.BAG IV ONE (14:39)
[2020-10-29 15:01] LABS: BASO % 0.4 % (0-2.0); EOS % 0.8 % (0-4.5); HEMATOCRIT 32.8 % (32.4-45.2); HEMOGLOBIN 11.3 GM/dL (10.7-15.3); LYMPH % 17.2 % (8-40); MCH 32.2 pg (25.7-33.7); MCHC 34.6 g/dl (32.0-36.0); MEAN CELL VOLUME 93.3 fl (80-96); MEAN PLT VOLUME 6.7 fl (7.5-11.1); MONO % 13.6 % (3.8-10.2); PLATELET COUNT 244 K/MM3 (134-434); RBC 3.52 M/mm3 (3.60-5.2); RDW 15.7 % (11.6-15.6); WHITE BLOOD COUNT 6.6 K/mm3 (4.0-10.0)
[2020-10-29 15:21] LABS: CHLORIDE 96 mmol/L (98-107); SODIUM 136 mmol/L (136-145)
[2020-10-29 15:23] LABS: ALBUMIN 2.3 g/dl (3.4-5.0); ANION GAP 6 MMOL/L (8-16); BLOOD UREA NITROGEN 7.4 mg/dL (7-18); CALCIUM 7.8 mg/dL (8.5-10.1); CO2 34 mmol/L (21-32)
[2020-10-29 15:24] LABS: GLUCOSE,RANDOM 163 mg/dL (74-106)
[2020-10-29 15:27] LABS: CREATININE 0.3 mg/dL (0.55-1.3); SGOT/AST 43 U/L (15-37); SGPT/ALT 16 U/L (13-61)
[2020-10-29 15:28] LABS: BILIRUBIN,TOTAL 0.5 mg/dL (0.2-1); TOT PROT 5.6 g/dl (6.4-8.2)
[2020-10-29 15:29] LABS: ALK PHOS 132 U/L (45-117)
[2020-10-29] MEDS ORDERED: ACETAMINOPHEN 500 MG TABLET (FP) PO PRN (17:35)
[2020-10-29] MEDS ORDERED: D5-1/2NS+20 MEQ KCL - 20 MEQ/1,000 ML INFUS.BAG IV SCH (17:45)
[2020-10-29 18:02] LABS: EPI CELLS >36 /uL (0-25.1); HYALINE CASTS 4 /uL (0-3.1); PH,URINE 7.5 (5.0-8.0); URINE APPEARANCE CLEAR; URINE BACTERIA 60 /uL (0-1359); URINE BILIRUBIN NEGATIVE (NEGATIVE); URINE COLOR YELLOW; URINE GLUCOSE (UA) NEGATIVE (NEGATIVE); URINE KETONE 1+ (NEGATIVE); URINE LEUK ESTERASE 2+ (NEGATIVE); URINE NITRITE NEGATIVE (NEGATIVE); URINE PROTEIN NEGATIVE (NEGATIVE); URINE RBC 74 /uL (0-23.9); URINE UROBILINOGEN 0.2 mg/dL (0.2-1.0); URINE WBC 183 /uL (0-25.8)
[2020-10-29] MEDS ORDERED: INSULIN SLIDING SCALE (NOVOLOG) 1 VIAL SQ SCH (22:00)
[2020-10-29] MEDS: CARVEDILOL 6.25 MG TABLET (FP) PO SCH (23:30)
[2020-10-29] MEDS: DIVALPROEX SODIUM 125 MG SPRINKLE CAPS PO SCH (23:30)
[2020-10-29] MEDS: metroNIDAZOLE 500 MG TABLET PO SCH (23:30)
[2020-10-29] MEDS: ATORVASTATIN CA 10 MG TABLET (FP) PO SCH (23:30)
[2020-10-29] MEDS: GABAPENTIN 300 MG CAPSULE PO SCH (23:31)
[2020-10-29] MEDS: NAPH,MB-DB/K PH,MBDB POWDER PACKET PO SCH (23:32)
[2020-10-29] MEDS: HEPARIN NA (PORCINE) 5,000 UNITS/ML 1ML VIAL SQ SCH (23:32)
[2020-10-29] MEDS: INSULIN SLIDING SCALE (NOVOLOG) 1 VIAL SQ SCH (23:57)
[2020-10-30] MEDS: INSULIN SLIDING SCALE (NOVOLOG) 1 VIAL SQ SCH (06:07)
[2020-10-30] MEDS ORDERED: DEXTROSE 5%-WATER - 50 ML IVPB ONE (08:41)
[2020-10-30] MEDS ORDERED: cefTRIAXone SODIUM 1 GM VIAL ONE (08:41)
[2020-10-30 08:45] LABS: BASO % 0.6 % (0-2.0); EOS % 0.9 % (0-4.5); HEMATOCRIT 31.5 % (32.4-45.2); HEMOGLOBIN 10.8 GM/dL (10.7-15.3); LYMPH % 17.9 % (8-40); MCH 32.2 pg (25.7-33.7); MCHC 34.3 g/dl (32.0-36.0); MEAN CELL VOLUME 93.8 fl (80-96); MEAN PLT VOLUME 6.8 fl (7.5-11.1); MONO % 15.3 % (3.8-10.2); NEUT % 65.3 % (42.8-82.8); PLATELET COUNT 209 K/MM3 (134-434); RBC 3.36 M/mm3 (3.60-5.2); RDW 15.9 % (11.6-15.6)
[2020-10-30 08:57] LABS: CALCIUM 7.5 mg/dL (8.5-10.1)
[2020-10-30 08:58] LABS: ALBUMIN 2.4 g/dl (3.4-5.0); BLOOD UREA NITROGEN 3.3 mg/dL (7-18); MAGNESIUM 1.9 mg/dL (1.8-2.4)
[2020-10-30 09:01] LABS: CREATININE 0.2 mg/dL (0.55-1.3); PHOSPHOROUS 2.6 mg/dL (2.5-4.9)
[2020-10-30 09:03] LABS: BILIRUBIN,TOTAL 0.5 mg/dL (0.2-1); TOT PROT 5.4 g/dl (6.4-8.2)
[2020-10-30] MEDS ORDERED: CEFTRIAXONE 1 GM IVPB SCH (10:00)
[2020-10-30] MEDS: CARVEDILOL 6.25 MG TABLET (FP) PO SCH ×3 (10:07→21:49)
[2020-10-30] MEDS: DIVALPROEX SODIUM 125 MG SPRINKLE CAPS PO SCH ×3 (10:07→21:49)
[2020-10-30] MEDS: NAPH,MB-DB/K PH,MBDB POWDER PACKET PO SCH ×3 (10:07→21:50)
[2020-10-30] MEDS: PANTOPRAZOLE 40 MG TABLET PO SCH ×2 (10:07→15:41)
[2020-10-30] MEDS: metroNIDAZOLE 500 MG TABLET PO SCH (10:07)
[2020-10-30] MEDS: GABAPENTIN 300 MG CAPSULE PO SCH ×3 (10:07→21:50)
[2020-10-30] MEDS: CEFTRIAXONE 1 GM in DEXTROSE 5%-WATER - 50 ML IVPB SCH (10:16)
[2020-10-30] MEDS: HEPARIN NA (PORCINE) 5,000 UNITS/ML 1ML VIAL SQ SCH ×2 (10:17→21:49)
[2020-10-30] MEDS ORDERED: ACETAMINOPHEN 650 MG SUPP.RECT RC PRN (11:01)
[2020-10-30] MEDS ORDERED: METOPROLOL TARTRATE 5 MG/5 ML VIAL IVPB PRN (11:01)
[2020-10-30] MEDS: AMINO ACIDS/PROTEIN HYDROLYS 30 ML LIQUID.PKT PO SCH (17:28)
[2020-10-30] MEDS: MULTIVITAMINS THER W-MINERALS COMBO TABLET (FP) PO SCH (17:28)
[2020-10-30] MEDS: ATORVASTATIN CA 10 MG TABLET (FP) PO SCH (21:50)
[2020-10-31 08:56] LABS: CALCIUM 7.8 mg/dL (8.5-10.1)
[2020-10-31 08:57] LABS: BLOOD UREA NITROGEN 5.2 mg/dL (7-18)
[2020-10-31 09:00] LABS: CREATININE 0.3 mg/dL (0.55-1.3)
[2020-10-31] MEDS: AMINO ACIDS/PROTEIN HYDROLYS 30 ML LIQUID.PKT PO SCH ×3 (09:14→16:49)
[2020-10-31] MEDS ORDERED: cefTRIAXone SODIUM 1 GM VIAL ONE (10:14)
[2020-10-31] MEDS ORDERED: DEXTROSE 5%-WATER - 50 ML IVPB ONE (10:14)
[2020-10-31] MEDS: CEFTRIAXONE 1 GM in DEXTROSE 5%-WATER - 50 ML IVPB SCH (10:18)
[2020-10-31] MEDS: CARVEDILOL 6.25 MG TABLET (FP) PO SCH ×2 (10:19→21:24)
[2020-10-31] MEDS: DIVALPROEX SODIUM 125 MG SPRINKLE CAPS PO SCH (10:19)
[2020-10-31] MEDS: GABAPENTIN 300 MG CAPSULE PO SCH ×2 (10:19→21:12)
[2020-10-31] MEDS: NAPH,MB-DB/K PH,MBDB POWDER PACKET PO SCH ×2 (10:19→21:12)
[2020-10-31] MEDS: MULTIVITAMINS THER W-MINERALS COMBO TABLET (FP) PO SCH (10:20)
[2020-10-31] MEDS: PANTOPRAZOLE 40 MG TABLET PO SCH (10:20)
[2020-10-31] MEDS: HEPARIN NA (PORCINE) 5,000 UNITS/ML 1ML VIAL SQ SCH ×2 (10:28→21:12)
[2020-10-31] MEDS ORDERED: ALBUTEROL SO4 2.5/IPRATROPIUM 0.5 INH SOL 3 ML VIAL.NEB. NEB STA (13:15)
[2020-10-31 15:16] LABS: HEMATOCRIT 33.4 % (32.4-45.2); HEMOGLOBIN 11.2 GM/dL (10.7-15.3); MCH 31.7 pg (25.7-33.7); MCHC 33.5 g/dl (32.0-36.0); MEAN CELL VOLUME 94.8 fl (80-96); MEAN PLT VOLUME 7.4 fl (7.5-11.1); PLATELET COUNT 240 K/MM3 (134-434); RBC 3.52 M/mm3 (3.60-5.2); RDW 16.3 % (11.6-15.6); WHITE BLOOD COUNT 7.6 K/mm3 (4.0-10.0)
[2020-10-31 17:22] LABS: ANISOCYTOSIS 1+; PLATELET ESTIMATE ADEQUATE; TARGET CELLS 1+
[2020-10-31] MEDS ORDERED: ACETAMINOPHEN 1000 MG/100 ML VIAL (NON FORMULARY) IVPB ONE (18:23)
[2020-10-31] MEDS: ALBUTEROL SO4 2.5/IPRATROPIUM 0.5 INH SOL 3 ML VIAL.NEB. NEB SCH (19:23)
[2020-10-31] MEDS: ATORVASTATIN CA 10 MG TABLET (FP) PO SCH (21:12)
[2020-10-31] MEDS: ASCORBIC ACID 500 MG TABLET (FP) PO SCH (21:34)
[2020-11-01] MEDS: ALBUTEROL SO4 2.5/IPRATROPIUM 0.5 INH SOL 3 ML VIAL.NEB. NEB SCH ×5 (01:30→20:06)
[2020-11-01] MEDS ORDERED: FAMOTIDINE 20 MG/50 ML IVPB 20 MG/50 ML MG IVPB ONE (03:12)
[2020-11-01] MEDS ORDERED: ACETAMINOPHEN 1000 MG/100 ML VIAL (NON FORMULARY) IVPB ONE (03:49)
[2020-11-01] MEDS: AMINO ACIDS/PROTEIN HYDROLYS 30 ML LIQUID.PKT PO SCH ×3 (07:12→17:14)
[2020-11-01] MEDS: GABAPENTIN 300 MG CAPSULE PO SCH (09:00)
[2020-11-01] MEDS: NAPH,MB-DB/K PH,MBDB POWDER PACKET PO SCH (09:00)
[2020-11-01] MEDS: CARVEDILOL 6.25 MG TABLET (FP) PO SCH (09:01)
[2020-11-01] MEDS: MULTIVITAMINS THER W-MINERALS COMBO TABLET (FP) PO SCH (09:01)
[2020-11-01] MEDS: ASCORBIC ACID 500 MG TABLET (FP) PO SCH (09:01)
[2020-11-01] MEDS: PANTOPRAZOLE 40 MG TABLET PO SCH (09:01)
[2020-11-01] MEDS ORDERED: DEXTROSE 5%-WATER - 50 ML IVPB ONE (09:04)
[2020-11-01] MEDS ORDERED: cefTRIAXone SODIUM 1 GM VIAL ONE (09:04)
[2020-11-01] MEDS: CEFTRIAXONE 1 GM in DEXTROSE 5%-WATER - 50 ML IVPB SCH (09:09)
[2020-11-01] MEDS: HEPARIN NA (PORCINE) 5,000 UNITS/ML 1ML VIAL SQ SCH ×2 (09:10→21:09)
[2020-11-01] MEDS ORDERED: ZINC SULFATE 220 MG CAPSULE (FP) PO SCH (10:00)
[2020-11-01] MEDS ORDERED: MEROPENEM 500 MG VIAL (RESTRICTED TO ID) IVPB ONE ×2 (11:56→18:59)
[2020-11-01] MEDS ORDERED: DEXTROSE 5%-WATER 100 ML IVPB ONE ×2 (11:56→18:59)
[2020-11-01] MEDS: MEROPENEM 500 MG in DEXTROSE 5%-WATER 100 ML IVPB SCH ×2 (12:06→19:12)
[2020-11-01 13:33] LABS: BASO % 0.1 % (0-2.0); HEMATOCRIT 35.2 % (32.4-45.2); HEMOGLOBIN 11.5 GM/dL (10.7-15.3); MCH 31.2 pg (25.7-33.7); MCHC 32.7 g/dl (32.0-36.0); MEAN CELL VOLUME 95.4 fl (80-96); MEAN PLT VOLUME 7.4 fl (7.5-11.1); MONO % 6.9 % (3.8-10.2); PLATELET COUNT 242 K/MM3 (134-434); RBC 3.69 M/mm3 (3.60-5.2); RDW 16.3 % (11.6-15.6); WHITE BLOOD COUNT 11.4 K/mm3 (4.0-10.0)
[2020-11-01] MEDS ORDERED: LORazepam 2 MG/ML SDV VIAL IVPUSH PRN (13:56)
[2020-11-01 14:06] LABS: ALBUMIN 2.3 g/dl (3.4-5.0); BILIRUBIN,TOTAL 0.6 mg/dL (0.2-1); BLOOD UREA NITROGEN 10.1 mg/dL (7-18); CALCIUM 8.3 mg/dL (8.5-10.1); CREATININE 0.4 mg/dL (0.55-1.3); TOT PROT 5.7 g/dl (6.4-8.2)
[2020-11-01] MEDS: ACETAMINOPHEN 1000 MG/100 ML VIAL (NON FORMULARY) IVPB PRN ×2 (14:12→21:10)
[2020-11-01] MEDS: AMINO ACIDS 4.25%/D5W 1,000 ML IV SCH (17:13)
[2020-11-02] MEDS ORDERED: MEROPENEM 500 MG VIAL (RESTRICTED TO ID) IVPB ONE ×3 (01:18→17:14)
[2020-11-02] MEDS ORDERED: DEXTROSE 5%-WATER 100 ML IVPB ONE ×3 (01:18→17:14)
[2020-11-02] MEDS: MEROPENEM 500 MG in DEXTROSE 5%-WATER 100 ML IVPB SCH ×3 (01:38→17:31)
[2020-11-02] MEDS: ALBUTEROL SO4 2.5/IPRATROPIUM 0.5 INH SOL 3 ML VIAL.NEB. NEB SCH ×3 (07:55→15:54)
[2020-11-02 08:42] LABS: ALBUMIN 2.1 g/dl (3.4-5.0); CALCIUM 8.1 mg/dL (8.5-10.1)
[2020-11-02 08:43] LABS: BLOOD UREA NITROGEN 13.3 mg/dL (7-18)
[2020-11-02 08:46] LABS: CREATININE 0.2 mg/dL (0.55-1.3)
[2020-11-02 08:47] LABS: BASO % 0.2 % (0-2.0); BILIRUBIN,TOTAL 0.7 mg/dL (0.2-1); EOS % 0.7 % (0-4.5); HEMATOCRIT 30.7 % (32.4-45.2); HEMOGLOBIN 10.3 GM/dL (10.7-15.3); LYMPH % 14.2 % (8-40); MCH 31.8 pg (25.7-33.7); MCHC 33.4 g/dl (32.0-36.0); MEAN CELL VOLUME 95.2 fl (80-96); MEAN PLT VOLUME 7.5 fl (7.5-11.1); MONO % 10.9 % (3.8-10.2); PLATELET COUNT 222 K/MM3 (134-434); RBC 3.22 M/mm3 (3.60-5.2); TOT PROT 5.3 g/dl (6.4-8.2); WHITE BLOOD COUNT 8.8 K/mm3 (4.0-10.0)
[2020-11-02] MEDS: AMINO ACIDS/PROTEIN HYDROLYS 30 ML LIQUID.PKT PO SCH ×3 (09:36→17:05)
[2020-11-02] MEDS: HEPARIN NA (PORCINE) 5,000 UNITS/ML 1ML VIAL SQ SCH ×2 (10:00→21:45)
[2020-11-02] MEDS: AMINO ACIDS 4.25%/D5W 1,000 ML IV SCH (14:17)
[2020-11-02] MEDS ORDERED: ACETYLCYSTEINE 20% 200MG/ML 30 ML VIAL *FOR ORAL / INH USE ONLY NEB SCH (16:50)
[2020-11-02] MEDS: ALBUTEROL SO4 0.083% IH SOL 2.5 MG/3 ML VIAL.NEB. NEB SCH ×2 (17:47→20:56)
[2020-11-02] MEDS ORDERED: PT OWN MED DRAWER 7, Y5N ONE (20:39)
[2020-11-02] MEDS ORDERED: ACETYLCYSTEINE 20% 200MG/ML 4 ML VIAL *FOR ORAL / INH USE ONLY NEB SCH (20:43)
[2020-11-02] MEDS: ACETYLCYSTEINE 20% 200MG/ML 4 ML VIAL *FOR ORAL / INH USE ONLY NEB SCH (20:58)
[2020-11-03] MEDS ORDERED: MEROPENEM 500 MG VIAL (RESTRICTED TO ID) IVPB ONE ×3 (01:22→18:01)
[2020-11-03] MEDS: MEROPENEM 500 MG in DEXTROSE 5%-WATER 100 ML IVPB SCH ×3 (01:29→18:18)
[2020-11-03] MEDS: AMINO ACIDS/PROTEIN HYDROLYS 30 ML LIQUID.PKT PO SCH ×3 (08:19→17:32)
[2020-11-03 08:28] LABS: BASO % 0.2 % (0-2.0); EOS % 1.8 % (0-4.5); HEMATOCRIT 32.7 % (32.4-45.2); HEMOGLOBIN 10.8 GM/dL (10.7-15.3); LYMPH % 17.1 % (8-40); MCH 31.2 pg (25.7-33.7); MCHC 33.2 g/dl (32.0-36.0); MEAN CELL VOLUME 94.1 fl (80-96); MEAN PLT VOLUME 7.5 fl (7.5-11.1); MONO % 12.2 % (3.8-10.2); NEUT % 68.7 % (42.8-82.8); PLATELET COUNT 246 K/MM3 (134-434); RBC 3.47 M/mm3 (3.60-5.2); RDW 15.6 % (11.6-15.6); WHITE BLOOD COUNT 5.2 K/mm3 (4.0-10.0)
[2020-11-03] MEDS: ALBUTEROL SO4 0.083% IH SOL 2.5 MG/3 ML VIAL.NEB. NEB SCH ×4 (08:45→20:13)
[2020-11-03] MEDS: ACETYLCYSTEINE 20% 200MG/ML 4 ML VIAL *FOR ORAL / INH USE ONLY NEB SCH ×4 (08:45→20:13)
[2020-11-03 08:50] LABS: CALCIUM 8.3 mg/dL (8.5-10.1)
[2020-11-03 08:51] LABS: ALBUMIN 2.2 g/dl (3.4-5.0); BLOOD UREA NITROGEN 11.6 mg/dL (7-18)
[2020-11-03 08:54] LABS: CREATININE 0.2 mg/dL (0.55-1.3)
[2020-11-03 08:55] LABS: BILIRUBIN,TOTAL 0.8 mg/dL (0.2-1); TOT PROT 5.7 g/dl (6.4-8.2)
[2020-11-03] MEDS ORDERED: DEXTROSE 5%-WATER 100 ML IVPB ONE ×2 (10:31→18:01)
[2020-11-03] MEDS: HEPARIN NA (PORCINE) 5,000 UNITS/ML 1ML VIAL SQ SCH (10:34)
[2020-11-03] MEDS: AMINO ACIDS 4.25%/D5W 1,000 ML IV SCH ×2 (11:47→17:53)
[2020-11-03] MEDS: ACETAMINOPHEN 1000 MG/100 ML VIAL (NON FORMULARY) IVPB PRN (14:59)
[2020-11-04] MEDS ORDERED: MEROPENEM 500 MG VIAL (RESTRICTED TO ID) IVPB ONE ×2 (00:47→18:17)
[2020-11-04] MEDS ORDERED: DEXTROSE 5%-WATER 100 ML IVPB ONE ×2 (00:47→18:17)
[2020-11-04] MEDS: HEPARIN NA (PORCINE) 5,000 UNITS/ML 1ML VIAL SQ SCH ×3 (01:59→21:14)
[2020-11-04] MEDS: MEROPENEM 500 MG in DEXTROSE 5%-WATER 100 ML IVPB SCH ×3 (02:00→18:35)
[2020-11-04] MEDS: ALBUTEROL SO4 0.083% IH SOL 2.5 MG/3 ML VIAL.NEB. NEB SCH ×4 (07:35→20:14)
[2020-11-04] MEDS: ACETYLCYSTEINE 20% 200MG/ML 4 ML VIAL *FOR ORAL / INH USE ONLY NEB SCH ×4 (07:35→20:14)
[2020-11-04 08:26] LABS: BASO % 0.3 % (0-2.0); EOS % 3.1 % (0-4.5); HEMATOCRIT 30.8 % (32.4-45.2); HEMOGLOBIN 10.6 GM/dL (10.7-15.3); LYMPH % 22.6 % (8-40); MCH 31.9 pg (25.7-33.7); MCHC 34.4 g/dl (32.0-36.0); MEAN CELL VOLUME 92.7 fl (80-96); MEAN PLT VOLUME 7.3 fl (7.5-11.1); MONO % 14.9 % (3.8-10.2); NEUT % 59.1 % (42.8-82.8); PLATELET COUNT 263 K/MM3 (134-434); RBC 3.32 M/mm3 (3.60-5.2); RDW 15.6 % (11.6-15.6); WHITE BLOOD COUNT 5.3 K/mm3 (4.0-10.0)
[2020-11-04 08:53] LABS: ALBUMIN 2.2 g/dl (3.4-5.0); CALCIUM 8.4 mg/dL (8.5-10.1)
[2020-11-04 08:58] LABS: CREATININE 0.2 mg/dL (0.55-1.3); TOT PROT 5.7 g/dl (6.4-8.2)
[2020-11-04 09:01] LABS: BILIRUBIN,TOTAL 0.8 mg/dL (0.2-1)
[2020-11-04] MEDS ORDERED: PT OWN MED DRAWER 7, Y5N ONE (10:17)
[2020-11-04] MEDS: AMINO ACIDS/PROTEIN HYDROLYS 30 ML LIQUID.PKT PO SCH ×3 (10:31→17:28)
[2020-11-04] MEDS: KCL 10 MEQ IVPB 10 MEQ/100 ML INFUS.BAG IVPB SCH ×2 (17:21→20:30)
[2020-11-04] MEDS: AMINO ACIDS 4.25%/D5W 1,000 ML IV SCH (17:22)
[2020-11-04] MEDS: NAPH,MB-DB/K PH,MBDB POWDER PACKET PO SCH (21:15)
[2020-11-04] MEDS: GABAPENTIN 300 MG CAPSULE PO SCH (21:15)
[2020-11-04] MEDS: CARVEDILOL 6.25 MG TABLET (FP) PO SCH (21:15)
[2020-11-04] MEDS: ATORVASTATIN CA 10 MG TABLET (FP) PO SCH (21:15)
[2020-11-05] MEDS ORDERED: DEXTROSE 5%-WATER 100 ML IVPB ONE ×3 (00:43→17:47)
[2020-11-05] MEDS ORDERED: MEROPENEM 500 MG VIAL (RESTRICTED TO ID) IVPB ONE ×3 (00:43→17:47)
[2020-11-05] MEDS: MEROPENEM 500 MG in DEXTROSE 5%-WATER 100 ML IVPB SCH ×3 (01:39→18:07)
[2020-11-05] MEDS: CARBIDOPA/LEVODOPA 25/100 TABLET (FP) PO SCH ×3 (06:23→18:04)
[2020-11-05] MEDS: ALBUTEROL SO4 0.083% IH SOL 2.5 MG/3 ML VIAL.NEB. NEB SCH ×4 (07:51→20:10)
[2020-11-05] MEDS: ACETYLCYSTEINE 20% 200MG/ML 4 ML VIAL *FOR ORAL / INH USE ONLY NEB SCH ×4 (07:52→20:10)
[2020-11-05 08:49] LABS: CREATININE 0.2 mg/dL (0.55-1.3)
[2020-11-05 08:51] LABS: CALCIUM 8.5 mg/dL (8.5-10.1)
[2020-11-05 08:55] LABS: BLOOD UREA NITROGEN 11.2 mg/dL (7-18)
[2020-11-05] MEDS: HEPARIN NA (PORCINE) 5,000 UNITS/ML 1ML VIAL SQ SCH ×2 (10:38→21:42)
[2020-11-05] MEDS: AMINO ACIDS 4.25%/D5W 1,000 ML IV SCH (18:06)
[2020-11-06] MEDS ORDERED: DEXTROSE 5%-WATER 100 ML IVPB ONE ×2 (01:13→17:13)
[2020-11-06] MEDS ORDERED: MEROPENEM 500 MG VIAL (RESTRICTED TO ID) IVPB ONE ×2 (01:13→17:13)
[2020-11-06] MEDS: MEROPENEM 500 MG in DEXTROSE 5%-WATER 100 ML IVPB SCH ×3 (01:44→17:28)
[2020-11-06] MEDS: ACETAMINOPHEN 1000 MG/100 ML VIAL (NON FORMULARY) IVPB PRN (05:50)
[2020-11-06] MEDS: ALBUTEROL SO4 0.083% IH SOL 2.5 MG/3 ML VIAL.NEB. NEB SCH (07:20)
[2020-11-06] MEDS: ACETYLCYSTEINE 20% 200MG/ML 4 ML VIAL *FOR ORAL / INH USE ONLY NEB SCH ×4 (07:20→20:06)
[2020-11-06] MEDS: HEPARIN NA (PORCINE) 5,000 UNITS/ML 1ML VIAL SQ SCH ×2 (09:17→21:40)
[2020-11-06] MEDS: CARBIDOPA/LEVODOPA 25/100 TABLET (FP) PO SCH ×2 (12:24→17:28)
[2020-11-06] MEDS: ALBUTEROL SO4 0.042% IH SOL 1.25 MG/3 ML VIAL.NEB NEB SCH ×3 (12:24→20:06)
[2020-11-06] MEDS: AMINO ACIDS 4.25%/D5W 1,000 ML IV SCH (17:27)
[2020-11-07] MEDS ORDERED: DEXTROSE 5%-WATER 100 ML IVPB ONE ×3 (02:55→18:14)
[2020-11-07] MEDS ORDERED: MEROPENEM 500 MG VIAL (RESTRICTED TO ID) IVPB ONE ×3 (02:55→18:14)
[2020-11-07] MEDS: MEROPENEM 500 MG in DEXTROSE 5%-WATER 100 ML IVPB SCH ×3 (03:07→18:32)
[2020-11-07] MEDS: CARBIDOPA/LEVODOPA 25/100 TABLET (FP) PO SCH ×5 (06:54→18:34)
[2020-11-07] MEDS: ACETYLCYSTEINE 20% 200MG/ML 4 ML VIAL *FOR ORAL / INH USE ONLY NEB SCH ×4 (07:40→20:34)
[2020-11-07] MEDS: ALBUTEROL SO4 0.042% IH SOL 1.25 MG/3 ML VIAL.NEB NEB SCH ×4 (07:40→20:35)
[2020-11-07] MEDS: HEPARIN NA (PORCINE) 5,000 UNITS/ML 1ML VIAL SQ SCH ×2 (11:45→23:02)
[2020-11-07] MEDS: AMINO ACIDS 4.25%/D5W 1,000 ML IV SCH ×2 (18:32→18:34)
[2020-11-07 19:56] LABS: CALCIUM 8.8 mg/dL (8.5-10.1)
[2020-11-07 19:57] LABS: ALBUMIN 2.3 g/dl (3.4-5.0); BLOOD UREA NITROGEN 10.9 mg/dL (7-18); MAGNESIUM 1.9 mg/dL (1.8-2.4)
[2020-11-07 20:01] LABS: BILIRUBIN,TOTAL 0.7 mg/dL (0.2-1); CREATININE 0.3 mg/dL (0.55-1.3)
[2020-11-08] MEDS: ACETAMINOPHEN 1000 MG/100 ML VIAL (NON FORMULARY) IVPB PRN (02:15)
[2020-11-08] MEDS ORDERED: MEROPENEM 500 MG VIAL (RESTRICTED TO ID) IVPB ONE ×3 (02:58→17:05)
[2020-11-08] MEDS ORDERED: ACETAMINOPHEN 325 MG SUPP.RECT RC ONE (02:58)
[2020-11-08] MEDS ORDERED: DEXTROSE 5%-WATER 100 ML IVPB ONE ×3 (02:59→17:05)
[2020-11-08] MEDS: MEROPENEM 500 MG in DEXTROSE 5%-WATER 100 ML IVPB SCH ×3 (03:09→17:07)
[2020-11-08] MEDS: CARBIDOPA/LEVODOPA 25/100 TABLET (FP) PO SCH ×3 (06:28→17:01)
[2020-11-08] MEDS: ALBUTEROL SO4 0.042% IH SOL 1.25 MG/3 ML VIAL.NEB NEB SCH ×4 (08:20→20:39)
[2020-11-08] MEDS: ACETYLCYSTEINE 20% 200MG/ML 4 ML VIAL *FOR ORAL / INH USE ONLY NEB SCH ×4 (08:20→20:39)
[2020-11-08 09:05] LABS: BASO % 0.4 % (0-2.0); EOS % 0.1 % (0-4.5); HEMATOCRIT 32.2 % (32.4-45.2); MCH 31.2 pg (25.7-33.7); MCHC 34.1 g/dl (32.0-36.0); MEAN CELL VOLUME 91.3 fl (80-96); MEAN PLT VOLUME 7.9 fl (7.5-11.1); MONO % 5.1 % (3.8-10.2); NEUT % 82.4 % (42.8-82.8); PLATELET COUNT 337 K/MM3 (134-434); RBC 3.53 M/mm3 (3.60-5.2); RDW 15.9 % (11.6-15.6); WHITE BLOOD COUNT 15.5 K/mm3 (4.0-10.0)
[2020-11-08 09:35] LABS: CALCIUM 8.8 mg/dL (8.5-10.1)
[2020-11-08 09:36] LABS: ALBUMIN 2.4 g/dl (3.4-5.0); MAGNESIUM 1.9 mg/dL (1.8-2.4)
[2020-11-08 09:39] LABS: CREATININE 0.3 mg/dL (0.55-1.3); PHOSPHOROUS 1.2 mg/dL (2.5-4.9)
[2020-11-08 09:42] LABS: BILIRUBIN,TOTAL 1.6 mg/dL (0.2-1); TOT PROT 5.9 g/dl (6.4-8.2)
[2020-11-08] MEDS: HEPARIN NA (PORCINE) 5,000 UNITS/ML 1ML VIAL SQ SCH ×2 (10:33→21:22)
[2020-11-08] MEDS ORDERED: SCOPOLAMINE HYDROBROMIDE 1 PATCH PATCH.TD72 TD SCH (11:30)
[2020-11-08] MEDS: KCL 10 MEQ IVPB 10 MEQ/100 ML INFUS.BAG IVPB SCH ×3 (12:50→14:53)
[2020-11-08] MEDS: POTASSIUM CHLORIDE 40 MEQ in AMINO ACIDS 4.25%/D5W 1,000 ML IV SCH ×2 (14:31→16:08)
[2020-11-08] MEDS: AMINO ACIDS 4.25%/D5W 1,000 ML IV SCH (16:23)
[2020-11-09] MEDS ORDERED: DEXTROSE 5%-WATER 100 ML IVPB ONE ×3 (00:43→17:48)
[2020-11-09] MEDS ORDERED: MEROPENEM 500 MG VIAL (RESTRICTED TO ID) IVPB ONE ×3 (00:43→17:47)
[2020-11-09] MEDS: MEROPENEM 500 MG in DEXTROSE 5%-WATER 100 ML IVPB SCH ×3 (01:03→18:13)
[2020-11-09] MEDS: CARBIDOPA/LEVODOPA 25/100 TABLET (FP) PO SCH ×4 (06:26→18:13)
[2020-11-09] MEDS: ACETYLCYSTEINE 20% 200MG/ML 4 ML VIAL *FOR ORAL / INH USE ONLY NEB SCH ×5 (08:56→20:09)
[2020-11-09] MEDS: ALBUTEROL SO4 0.042% IH SOL 1.25 MG/3 ML VIAL.NEB NEB SCH ×5 (08:56→20:10)
[2020-11-09] MEDS: HEPARIN NA (PORCINE) 5,000 UNITS/ML 1ML VIAL SQ SCH ×2 (11:01→21:23)
[2020-11-09 13:25] LABS: HEMOGLOBIN 10.6 GM/dL (10.7-15.3); MCH 31.5 pg (25.7-33.7); MCHC 34.4 g/dl (32.0-36.0); MEAN CELL VOLUME 91.7 fl (80-96); MEAN PLT VOLUME 7.8 fl (7.5-11.1); PLATELET COUNT 281 K/MM3 (134-434); RBC 3.38 M/mm3 (3.60-5.2); RDW 15.9 % (11.6-15.6); WHITE BLOOD COUNT 7.6 K/mm3 (4.0-10.0)
[2020-11-09] MEDS: POTASSIUM CHLORIDE 40 MEQ in AMINO ACIDS 4.25%/D5W 1,000 ML IV SCH (19:00)
[2020-11-10] MEDS ORDERED: DEXTROSE 5%-WATER 100 ML IVPB ONE ×2 (01:04→09:49)
[2020-11-10] MEDS ORDERED: MEROPENEM 500 MG VIAL (RESTRICTED TO ID) IVPB ONE ×2 (01:04→09:49)
[2020-11-10] MEDS: MEROPENEM 500 MG in DEXTROSE 5%-WATER 100 ML IVPB SCH ×3 (01:08→17:22)
[2020-11-10] MEDS: CARBIDOPA/LEVODOPA 25/100 TABLET (FP) PO SCH ×3 (06:31→17:21)
[2020-11-10] MEDS: ACETYLCYSTEINE 20% 200MG/ML 4 ML VIAL *FOR ORAL / INH USE ONLY NEB SCH ×4 (08:01→20:45)
[2020-11-10] MEDS: ALBUTEROL SO4 0.042% IH SOL 1.25 MG/3 ML VIAL.NEB NEB SCH ×4 (08:01→20:45)
[2020-11-10] MEDS: HEPARIN NA (PORCINE) 5,000 UNITS/ML 1ML VIAL SQ SCH ×2 (09:55→21:30)
[2020-11-10] MEDS ORDERED: POLYETHYLENE GLYCOL 3350 119 GM BTL PO ONE (10:20)
[2020-11-10 12:09] LABS: CALCIUM 9.4 mg/dL (8.5-10.1)
[2020-11-10 12:10] LABS: BLOOD UREA NITROGEN 12.1 mg/dL (7-18)
[2020-11-10 12:13] LABS: CREATININE 0.3 mg/dL (0.55-1.3)
[2020-11-10 13:35] LABS: ALBUMIN 2.5 g/dl (3.4-5.0)
[2020-11-10 13:37] LABS: BILIRUBIN,DIRECT 0.4 mg/dL (0.0-0.2)
[2020-11-10 13:39] LABS: BILIRUBIN,TOTAL 1.2 mg/dL (0.2-1); TOT PROT 6.2 g/dl (6.4-8.2)
[2020-11-10] MEDS: POTASSIUM CHLORIDE 40 MEQ in AMINO ACIDS 4.25%/D5W 1,000 ML IV SCH (17:21)
[2020-11-11] MEDS ORDERED: MEROPENEM 500 MG VIAL (RESTRICTED TO ID) IVPB ONE ×3 (02:31→17:08)
[2020-11-11] MEDS ORDERED: DEXTROSE 5%-WATER 100 ML IVPB ONE ×3 (02:31→17:08)
[2020-11-11] MEDS: MEROPENEM 500 MG in DEXTROSE 5%-WATER 100 ML IVPB SCH ×3 (02:45→17:33)
[2020-11-11] MEDS: CARBIDOPA/LEVODOPA 25/100 TABLET (FP) PO SCH ×3 (06:35→17:33)
[2020-11-11] MEDS: ACETYLCYSTEINE 20% 200MG/ML 4 ML VIAL *FOR ORAL / INH USE ONLY NEB SCH ×4 (08:12→20:16)
[2020-11-11] MEDS: ALBUTEROL SO4 0.042% IH SOL 1.25 MG/3 ML VIAL.NEB NEB SCH ×4 (08:12→20:17)
[2020-11-11 09:06] LABS: CALCIUM 9.1 mg/dL (8.5-10.1)
[2020-11-11 09:10] LABS: CREATININE 0.3 mg/dL (0.55-1.3); URIC ACID 1.6 mg/dL (2.6-7.2)
[2020-11-11] MEDS: HEPARIN NA (PORCINE) 5,000 UNITS/ML 1ML VIAL SQ SCH ×2 (10:40→21:23)
[2020-11-11] MEDS ORDERED: METOCLOPRAMIDE HCL 10 MG/10 ML UNIT DOSE CUP PO ONE (12:00)
[2020-11-11] MEDS ORDERED: POLYETHYLENE GLYCOL 3350 119 GM BTL PO ONE (12:00)
[2020-11-11 12:49] VITALS: BMI 13.7
[2020-11-11] MEDS: SODIUM CHLORIDE 1,000 ML IV SCH (14:00)
[2020-11-12] MEDS ORDERED: MEROPENEM 500 MG VIAL (RESTRICTED TO ID) IVPB ONE ×2 (01:51→09:21)
[2020-11-12] MEDS ORDERED: DEXTROSE 5%-WATER 100 ML IVPB ONE ×2 (01:52→09:22)
[2020-11-12] MEDS: MEROPENEM 500 MG in DEXTROSE 5%-WATER 100 ML IVPB SCH ×2 (01:54→09:27)
[2020-11-12] MEDS: SODIUM CHLORIDE 1,000 ML IV SCH (01:57)
[2020-11-12] MEDS: CARBIDOPA/LEVODOPA 25/100 TABLET (FP) PO SCH ×3 (06:58→19:01)
[2020-11-12] MEDS: ALBUTEROL SO4 0.042% IH SOL 1.25 MG/3 ML VIAL.NEB NEB SCH ×4 (07:40→20:23)
[2020-11-12] MEDS: ACETYLCYSTEINE 20% 200MG/ML 4 ML VIAL *FOR ORAL / INH USE ONLY NEB SCH ×4 (07:40→20:23)
[2020-11-12] MEDS: HEPARIN NA (PORCINE) 5,000 UNITS/ML 1ML VIAL SQ SCH (09:18)
[2020-11-12 09:34] LABS: CALCIUM 8.4 mg/dL (8.5-10.1)
[2020-11-12 09:35] LABS: BLOOD UREA NITROGEN 15.2 mg/dL (7-18)
[2020-11-12 09:38] LABS: CREATININE 0.2 mg/dL (0.55-1.3)
[2020-11-12] MEDS: KCL 10 MEQ IVPB 10 MEQ/100 ML INFUS.BAG IVPB SCH ×3 (10:37→12:56)
[2020-11-12] MEDS ORDERED: SENNOSIDES 8.8 MG/5 ML BULK BOTTLE PO ONE (12:00)
[2020-11-12] MEDS: METOCLOPRAMIDE HCL INJECTION 10 MG/2 ML VIAL IVPUSH SCH ×2 (12:29→19:24)
[2020-11-12] MEDS: POTASSIUM CHLORIDE 40 MEQ in AMINO ACIDS 4.25%/D5W 1,000 ML IV SCH (14:44)
[2020-11-12] MEDS ORDERED: POTASSIUM CHLORIDE ORAL LIQUID 20 MEQ/15 ML NGT ONE (18:10)
[2020-11-12] MEDS: DIVALPROEX SODIUM 125 MG SPRINKLE CAPS PO SCH (23:00)
[2020-11-12] MEDS ORDERED: PT OWN MED DRAWER 7, Y5N ONE (23:03)
[2020-11-12] MEDS: GABAPENTIN 250 MG/5 ML ORAL SOLUTION, 470 ML BOTTLE NGT SCH (23:12)
[2020-11-13] MEDS: METOCLOPRAMIDE HCL INJECTION 10 MG/2 ML VIAL IVPUSH SCH ×3 (01:25→18:11)
[2020-11-13] MEDS: ACETAMINOPHEN 1000 MG/100 ML VIAL (NON FORMULARY) IVPB PRN (05:17)
[2020-11-13] MEDS: GABAPENTIN 250 MG/5 ML ORAL SOLUTION, 470 ML BOTTLE NGT SCH ×3 (05:24→21:00)
[2020-11-13] MEDS: ACETYLCYSTEINE 20% 200MG/ML 4 ML VIAL *FOR ORAL / INH USE ONLY NEB SCH ×4 (07:20→20:20)
[2020-11-13] MEDS: ALBUTEROL SO4 0.042% IH SOL 1.25 MG/3 ML VIAL.NEB NEB SCH ×4 (07:20→20:20)
[2020-11-13] MEDS: CARBIDOPA/LEVODOPA 25/100 TABLET (FP) PO SCH ×3 (07:42→18:11)
[2020-11-13] MEDS ORDERED: PT OWN MED DRAWER 7, Y5N ONE (09:43)
[2020-11-13 09:48] LABS: BASO % 0.3 % (0-2.0); EOS % 0.1 % (0-4.5); HEMATOCRIT 27.6 % (32.4-45.2); HEMOGLOBIN 9.2 GM/dL (10.7-15.3); LYMPH % 13.1 % (8-40); MCH 30.4 pg (25.7-33.7); MCHC 33.5 g/dl (32.0-36.0); MEAN CELL VOLUME 90.7 fl (80-96); MEAN PLT VOLUME 7.7 fl (7.5-11.1); MONO % 8.6 % (3.8-10.2); NEUT % 77.9 % (42.8-82.8); PLATELET COUNT 274 K/MM3 (134-434); RBC 3.04 M/mm3 (3.60-5.2); RDW 15.6 % (11.6-15.6)
[2020-11-13] MEDS: POTASSIUM CHLORIDE ORAL LIQUID 20 MEQ/15 ML NGT SCH (09:49)
[2020-11-13] MEDS: DIVALPROEX SODIUM 125 MG SPRINKLE CAPS PO SCH ×2 (09:49→20:59)
[2020-11-13] MEDS: FAMOTIDINE 40 MG/5 ML ORAL SUSPENSION NGT SCH (09:50)
[2020-11-13 10:10] LABS: CALCIUM 8.8 mg/dL (8.5-10.1)
[2020-11-13 10:12] LABS: ALBUMIN 2.4 g/dl (3.4-5.0); BLOOD UREA NITROGEN 13.4 mg/dL (7-18)
[2020-11-13 10:15] LABS: CREATININE 0.2 mg/dL (0.55-1.3)
[2020-11-13 10:16] LABS: BILIRUBIN,TOTAL 1.3 mg/dL (0.2-1)
[2020-11-13 10:18] LABS: TOT PROT 5.7 g/dl (6.4-8.2)
[2020-11-13] MEDS: POTASSIUM CHLORIDE 40 MEQ in AMINO ACIDS 4.25%/D5W 1,000 ML IV SCH (13:55)
[2020-11-14] MEDS: METOCLOPRAMIDE HCL INJECTION 10 MG/2 ML VIAL IVPUSH SCH ×3 (02:34→17:16)
[2020-11-14] MEDS: CARBIDOPA/LEVODOPA 25/100 TABLET (FP) PO SCH ×3 (06:03→16:55)
[2020-11-14] MEDS: GABAPENTIN 250 MG/5 ML ORAL SOLUTION, 470 ML BOTTLE NGT SCH ×3 (06:04→21:47)
[2020-11-14] MEDS: ALBUTEROL SO4 0.042% IH SOL 1.25 MG/3 ML VIAL.NEB NEB SCH ×4 (08:00→20:00)
[2020-11-14] MEDS: ACETYLCYSTEINE 20% 200MG/ML 4 ML VIAL *FOR ORAL / INH USE ONLY NEB SCH ×4 (08:00→20:00)
[2020-11-14 08:09] LABS: HEMOGLOBIN 8.5 GM/dL (10.7-15.3); MCH 30.6 pg (25.7-33.7); MEAN CELL VOLUME 89.8 fl (80-96); MEAN PLT VOLUME 7.8 fl (7.5-11.1); PLATELET COUNT 238 K/MM3 (134-434); RBC 2.78 M/mm3 (3.60-5.2); RDW 15.5 % (11.6-15.6); WHITE BLOOD COUNT 8.1 K/mm3 (4.0-10.0)
[2020-11-14 08:10] LABS: BASO % 0.4 % (0-2.0); HEMATOCRIT 25.3 % (32.4-45.2); HEMOGLOBIN 8.5 GM/dL (10.7-15.3); LYMPH % 12.7 % (8-40); MCH 30.4 pg (25.7-33.7); MCHC 33.6 g/dl (32.0-36.0); MEAN CELL VOLUME 90.4 fl (80-96); MEAN PLT VOLUME 7.6 fl (7.5-11.1); MONO % 9.4 % (3.8-10.2); NEUT % 76.5 % (42.8-82.8); PLATELET COUNT 238 K/MM3 (134-434); RDW 15.2 % (11.6-15.6); WHITE BLOOD COUNT 7.8 K/mm3 (4.0-10.0)
[2020-11-14 08:30] LABS: CHLORIDE 98 mmol/L (98-107); SODIUM 134 mmol/L (136-145)
[2020-11-14 08:34] LABS: ALBUMIN 2.2 g/dl (3.4-5.0); BLOOD UREA NITROGEN 9.6 mg/dL (7-18); CALCIUM 8.9 mg/dL (8.5-10.1)
[2020-11-14 08:35] LABS: ANION GAP 4 MMOL/L (8-16); CO2 32 mmol/L (21-32); GLUCOSE,RANDOM 180 mg/dL (74-106); MAGNESIUM 1.5 mg/dL (1.8-2.4)
[2020-11-14 08:37] LABS: CREATININE < 0.2 mg/dL (0.55-1.3); SGOT/AST 53 U/L (15-37); SGPT/ALT 16 U/L (13-61)
[2020-11-14 08:39] LABS: ALK PHOS 106 U/L (45-117); TOT PROT 5.3 g/dl (6.4-8.2)
[2020-11-14] MEDS ORDERED: PT OWN MED DRAWER 7, Y5N ONE (08:50)
[2020-11-14] MEDS: FAMOTIDINE 40 MG/5 ML ORAL SUSPENSION NGT SCH (09:04)
[2020-11-14] MEDS: DIVALPROEX SODIUM 125 MG SPRINKLE CAPS PO SCH ×2 (09:04→21:48)
[2020-11-14] MEDS: POTASSIUM CHLORIDE ORAL LIQUID 20 MEQ/15 ML NGT SCH (09:04)
[2020-11-14] MEDS ORDERED: MAGNESIUM SULF 50% (8.12 MEQ/2 ML-1 GM VIAL) IVPB ONE (09:59)
[2020-11-14] MEDS: POTASSIUM CHLORIDE 40 MEQ in AMINO ACIDS 4.25%/D5W 1,000 ML IV SCH (14:49)
[2020-11-15] MEDS: METOCLOPRAMIDE HCL INJECTION 10 MG/2 ML VIAL IVPUSH SCH ×3 (01:48→17:58)
[2020-11-15] MEDS: CARBIDOPA/LEVODOPA 25/100 TABLET (FP) PO SCH ×3 (06:11→17:58)
[2020-11-15] MEDS: GABAPENTIN 250 MG/5 ML ORAL SOLUTION, 470 ML BOTTLE NGT SCH ×3 (06:12→22:45)
[2020-11-15] MEDS: ALBUTEROL SO4 0.042% IH SOL 1.25 MG/3 ML VIAL.NEB NEB SCH ×4 (07:30→20:17)
[2020-11-15] MEDS: ACETYLCYSTEINE 20% 200MG/ML 4 ML VIAL *FOR ORAL / INH USE ONLY NEB SCH ×4 (07:30→20:16)
[2020-11-15 08:55] LABS: BASO % 0.6 % (0-2.0); EOS % 0.6 % (0-4.5); HEMATOCRIT 27.1 % (32.4-45.2); HEMOGLOBIN 9.2 GM/dL (10.7-15.3); MCH 30.7 pg (25.7-33.7); MCHC 34.1 g/dl (32.0-36.0); MEAN CELL VOLUME 90.2 fl (80-96); MEAN PLT VOLUME 7.8 fl (7.5-11.1); MONO % 6.1 % (3.8-10.2); NEUT % 83.7 % (42.8-82.8); PLATELET COUNT 303 K/MM3 (134-434); RBC 3.01 M/mm3 (3.60-5.2); RDW 15.3 % (11.6-15.6); WHITE BLOOD COUNT 10.2 K/mm3 (4.0-10.0)
[2020-11-15 09:18] LABS: BLOOD UREA NITROGEN 10.5 mg/dL (7-18)
[2020-11-15 09:20] LABS: ALBUMIN 2.3 g/dl (3.4-5.0)
[2020-11-15 09:21] LABS: CALCIUM 9.1 mg/dL (8.5-10.1)
[2020-11-15 09:24] LABS: CREATININE 0.2 mg/dL (0.55-1.3)
[2020-11-15 09:26] LABS: BILIRUBIN,TOTAL 0.9 mg/dL (0.2-1)
[2020-11-15 09:27] LABS: TOT PROT 5.8 g/dl (6.4-8.2)
[2020-11-15] MEDS ORDERED: PT OWN MED DRAWER 7, Y5N ONE ×3 (10:41→22:40)
[2020-11-15] MEDS: POTASSIUM CHLORIDE ORAL LIQUID 20 MEQ/15 ML NGT SCH (10:43)
[2020-11-15] MEDS: FAMOTIDINE 40 MG/5 ML ORAL SUSPENSION NGT SCH (10:44)
[2020-11-15] MEDS: DIVALPROEX SODIUM 125 MG SPRINKLE CAPS PO SCH ×2 (10:44→22:45)
[2020-11-15] MEDS ORDERED: CEFEPIME HCL 1 GM VIAL (RESTRICTED TO ID) ONE ×2 (13:35→22:41)
[2020-11-15] MEDS ORDERED: DEXTROSE 5%-WATER 100 ML IVPB ONE ×2 (13:35→22:41)
[2020-11-15 13:46] LABS: EPI CELLS >36 /uL (0-25.1); HYALINE CASTS 60 /uL (0-3.1); URINE APPEARANCE TURBID; URINE BACTERIA 1762 /uL (0-1359); URINE BILIRUBIN NEGATIVE (NEGATIVE); URINE COLOR DK YELLOW; URINE GLUCOSE (UA) NEGATIVE (NEGATIVE); URINE KETONE TRACE (NEGATIVE); URINE LEUK ESTERASE 3+ (NEGATIVE); URINE NITRITE NEGATIVE (NEGATIVE); URINE PROTEIN 2+ (NEGATIVE); URINE UROBILINOGEN 4.0 E.U/dl mg/dL (0.2-1.0); URINE WBC 22438 /uL (0-25.8)
[2020-11-15 13:56] LABS: URINE RBC 839.6 /uL (0-23.9)
[2020-11-15] MEDS: CEFEPIME 1 GM in DEXTROSE 5%-WATER 1 GM/100 ML BAG IVPB SCH ×2 (13:58→22:46)
[2020-11-15] MEDS: POTASSIUM CHLORIDE 40 MEQ in AMINO ACIDS 4.25%/D5W 1,000 ML IV SCH (14:00)
[2020-11-15 14:25] LABS: YEAST NONE SEEN (NEGATIVE)
[2020-11-16] MEDS: METOCLOPRAMIDE HCL INJECTION 10 MG/2 ML VIAL IVPUSH SCH ×3 (01:51→18:12)
[2020-11-16] MEDS: CARBIDOPA/LEVODOPA 25/100 TABLET (FP) PO SCH ×3 (06:48→18:12)
[2020-11-16] MEDS: GABAPENTIN 250 MG/5 ML ORAL SOLUTION, 470 ML BOTTLE NGT SCH ×3 (06:48→21:49)
[2020-11-16 08:17] LABS: BASO % 0.2 % (0-2.0); HEMATOCRIT 24.9 % (32.4-45.2); HEMOGLOBIN 8.3 GM/dL (10.7-15.3); LYMPH % 6.7 % (8-40); MCH 29.9 pg (25.7-33.7); MCHC 33.4 g/dl (32.0-36.0); MEAN CELL VOLUME 89.5 fl (80-96); MEAN PLT VOLUME 7.9 fl (7.5-11.1); MONO % 3.8 % (3.8-10.2); NEUT % 89.3 % (42.8-82.8); PLATELET COUNT 314 10^3/uL (134-434); RBC 2.78 M/mm3 (3.60-5.2); RDW 15.8 % (11.6-15.6); WHITE BLOOD COUNT 17.7 K/mm3 (4.0-10.0)
[2020-11-16 08:42] LABS: BLOOD UREA NITROGEN 12.1 mg/dL (7-18); CALCIUM 8.6 mg/dL (8.5-10.1)
[2020-11-16 08:43] LABS: ALBUMIN 2.1 g/dl (3.4-5.0)
[2020-11-16 08:46] LABS: CREATININE 0.2 mg/dL (0.55-1.3)
[2020-11-16 08:47] LABS: BILIRUBIN,TOTAL 1.3 mg/dL (0.2-1); TOT PROT 5.4 g/dl (6.4-8.2)
[2020-11-16] MEDS: ACETYLCYSTEINE 20% 200MG/ML 4 ML VIAL *FOR ORAL / INH USE ONLY NEB SCH ×4 (08:53→19:30)
[2020-11-16] MEDS: ALBUTEROL SO4 0.042% IH SOL 1.25 MG/3 ML VIAL.NEB NEB SCH ×4 (08:54→19:30)
[2020-11-16] MEDS ORDERED: CEFEPIME HCL 1 GM VIAL (RESTRICTED TO ID) ONE ×2 (09:42→21:40)
[2020-11-16] MEDS ORDERED: DEXTROSE 5%-WATER 100 ML IVPB ONE ×2 (09:42→21:40)
[2020-11-16] MEDS: CEFEPIME 1 GM in DEXTROSE 5%-WATER 1 GM/100 ML BAG IVPB SCH (09:46)
[2020-11-16] MEDS ORDERED: PT OWN MED DRAWER 7, Y5N ONE ×5 (10:36→21:40)
[2020-11-16] MEDS: DIVALPROEX SODIUM 125 MG SPRINKLE CAPS PO SCH ×2 (10:45→21:48)
[2020-11-16] MEDS: POTASSIUM CHLORIDE ORAL LIQUID 20 MEQ/15 ML NGT SCH (10:45)
[2020-11-16] MEDS: FAMOTIDINE 40 MG/5 ML ORAL SUSPENSION NGT SCH (10:46)
[2020-11-16] MEDS ORDERED: PANTOPRAZOLE SODIUM 40 MG VIAL IVPUSH SCH (11:15)
[2020-11-16 12:08] LABS: INR 1.37 (0.83-1.09); PROTHROMBIN TIME (PATIENT) 16.7 SEC (9.7-13.0)
[2020-11-16 12:09] LABS: BASO % 0.1 % (0-2.0); EOS % 0.1 % (0-4.5); HEMOGLOBIN 7.8 GM/dL (10.7-15.3); LYMPH % 10.3 % (8-40); MCH 29.4 pg (25.7-33.7); MCHC 32.6 g/dl (32.0-36.0); MEAN CELL VOLUME 90.1 fl (80-96); MEAN PLT VOLUME 7.8 fl (7.5-11.1); MONO % 3.8 % (3.8-10.2); NEUT % 85.7 % (42.8-82.8); PLATELET COUNT 298 10^3/uL (134-434); RBC 2.66 M/mm3 (3.60-5.2); RDW 15.7 % (11.6-15.6); WHITE BLOOD COUNT 13.8 K/mm3 (4.0-10.0)
[2020-11-16] MEDS ORDERED: ACETAMINOPHEN 1000 MG/100 ML VIAL (NON FORMULARY) IVPB PRN (12:30)
[2020-11-16] MEDS: POTASSIUM CHLORIDE 40 MEQ in AMINO ACIDS 4.25%/D5W 1,000 ML IV SCH ×2 (14:28→16:27)
[2020-11-16] MEDS: VANCOMYCIN 750 MG in DEXTROSE 5%-WATER - 250 ML IVPB SCH (14:29)
[2020-11-16] MEDS: PANTOPRAZOLE SODIUM 80 MG in SODIUM CHLORIDE 100 ML IVPB SCH (16:28)
[2020-11-16] MEDS: AMINO ACIDS/PROTEIN HYDROLYS 30 ML LIQUID.PKT PO SCH (18:12)
[2020-11-17] MEDS: CEFEPIME 1 GM in DEXTROSE 5%-WATER 1 GM/100 ML BAG IVPB SCH ×3 (00:49→21:16)
[2020-11-17] MEDS: PANTOPRAZOLE SODIUM 80 MG in SODIUM CHLORIDE 100 ML IVPB SCH ×3 (03:29→21:16)
[2020-11-17] MEDS: METOCLOPRAMIDE HCL INJECTION 10 MG/2 ML VIAL IVPUSH SCH ×3 (03:29→18:45)
[2020-11-17] MEDS ORDERED: PT OWN MED DRAWER 7, Y5N ONE ×9 (05:12→21:07)
[2020-11-17] MEDS: GABAPENTIN 250 MG/5 ML ORAL SOLUTION, 470 ML BOTTLE NGT SCH ×3 (05:40→21:16)
[2020-11-17] MEDS: CARBIDOPA/LEVODOPA 25/100 TABLET (FP) PO SCH ×3 (06:11→18:45)
[2020-11-17] MEDS: ALBUTEROL SO4 0.042% IH SOL 1.25 MG/3 ML VIAL.NEB NEB SCH ×4 (07:10→20:06)
[2020-11-17] MEDS: ACETYLCYSTEINE 20% 200MG/ML 4 ML VIAL *FOR ORAL / INH USE ONLY NEB SCH ×4 (07:10→20:06)
[2020-11-17 07:27] LABS: BASO % 0.2 % (0-2.0); HEMATOCRIT 30.8 % (32.4-45.2); HEMOGLOBIN 10.3 GM/dL (10.7-15.3); LYMPH % 6.2 % (8-40); MCH 29.9 pg (25.7-33.7); MCHC 33.5 g/dl (32.0-36.0); MEAN CELL VOLUME 89.4 fl (80-96); MEAN PLT VOLUME 7.6 fl (7.5-11.1); MONO % 4.1 % (3.8-10.2); NEUT % 88.5 % (42.8-82.8); PLATELET COUNT 238 10^3/uL (134-434); RBC 3.44 M/mm3 (3.60-5.2); RDW 16.1 % (11.6-15.6)
[2020-11-17 07:52] LABS: CHLORIDE 101 mmol/L (98-107); SODIUM 135 mmol/L (136-145)
[2020-11-17 07:57] LABS: GLUCOSE,RANDOM 154 mg/dL (74-106)
[2020-11-17 07:59] LABS: ALBUMIN 1.9 g/dl (3.4-5.0)
[2020-11-17 08:00] LABS: ANION GAP 8 MMOL/L (8-16); CO2 26 mmol/L (21-32)
[2020-11-17 08:01] LABS: BLOOD UREA NITROGEN 11.8 mg/dL (7-18)
[2020-11-17 08:02] LABS: CREATININE < 0.2 mg/dL (0.55-1.3); IRON SERUM 119 ug/dL (50-175); SGPT/ALT 18 U/L (13-61); TOTAL IRON BINDING CAPACITY 133 ug/dL (250-450)
[2020-11-17 08:03] LABS: SGOT/AST 33 U/L (15-37)
[2020-11-17 08:05] LABS: BILIRUBIN,TOTAL 1.2 mg/dL (0.2-1); TOT PROT 5.1 g/dl (6.4-8.2)
[2020-11-17 08:06] LABS: ALK PHOS 112 U/L (45-117)
[2020-11-17] MEDS ORDERED: ALBUTEROL SO4 0.083% IH SOL 2.5 MG/3 ML VIAL.NEB. NEB ONE (08:06)
[2020-11-17] MEDS ORDERED: DEXTROSE 5%-WATER 100 ML IVPB ONE (09:52)
[2020-11-17] MEDS ORDERED: CEFEPIME HCL 1 GM VIAL (RESTRICTED TO ID) ONE (09:52)
[2020-11-17] MEDS: AMINO ACIDS/PROTEIN HYDROLYS 30 ML LIQUID.PKT PO SCH ×2 (10:08→18:45)
[2020-11-17] MEDS: POTASSIUM CHLORIDE ORAL LIQUID 20 MEQ/15 ML NGT SCH (10:08)
[2020-11-17] MEDS ORDERED: POTASSIUM CHLORIDE 40 MEQ in AMINO ACIDS 4.25%/D5W 1,000 ML IV SCH (11:29)
[2020-11-17 12:12] LABS: MAGNESIUM 1.6 mg/dL (1.8-2.4)
[2020-11-17 12:15] LABS: PHOSPHOROUS 2.5 mg/dL (2.5-4.9)
[2020-11-17] MEDS ORDERED: FUROSEMIDE 40 MG/4 ML INJECTABLE VIAL IVPUSH ONE (12:30)
[2020-11-17] MEDS: THIAMINE HCL 200 MG/2 ML VIAL IVPB SCH (12:51)
[2020-11-17] MEDS: DIVALPROEX SODIUM 125 MG SPRINKLE CAPS PO SCH ×2 (12:54→21:16)
[2020-11-17] MEDS: VANCOMYCIN 750 MG in DEXTROSE 5%-WATER - 250 ML IVPB SCH (12:58)
[2020-11-17] MEDS: POTASSIUM CHLORIDE 40 MEQ in AMINO ACIDS 4.25%/D5W 1,000 ML IV SCH (20:15)
[2020-11-17] MEDS: SENNOSIDES 8.8 MG/5 ML BULK BOTTLE PO SCH (21:10)
[2020-11-18] MEDS ORDERED: PT OWN MED DRAWER 7, Y5N ONE ×4 (00:44→21:06)
[2020-11-18] MEDS: METOCLOPRAMIDE HCL INJECTION 10 MG/2 ML VIAL IVPUSH SCH ×2 (01:04→09:39)
[2020-11-18] MEDS: CARBIDOPA/LEVODOPA 25/100 TABLET (FP) PO SCH ×3 (06:24→18:06)
[2020-11-18] MEDS: GABAPENTIN 250 MG/5 ML ORAL SOLUTION, 470 ML BOTTLE NGT SCH ×3 (06:24→21:57)
[2020-11-18 06:38] LABS: BASO % 0.3 % (0-2.0); EOS % 3.7 % (0-4.5); HEMATOCRIT 29.3 % (32.4-45.2); HEMOGLOBIN 9.9 GM/dL (10.7-15.3); LYMPH % 7.7 % (8-40); MEAN CELL VOLUME 88.4 fl (80-96); MEAN PLT VOLUME 7.9 fl (7.5-11.1); MONO % 6.8 % (3.8-10.2); NEUT % 81.5 % (42.8-82.8); PLATELET COUNT 256 10^3/uL (134-434); RBC 3.31 M/mm3 (3.60-5.2); RDW 16.1 % (11.6-15.6); WHITE BLOOD COUNT 9.3 K/mm3 (4.0-10.0)
[2020-11-18 06:57] LABS: CHLORIDE 98 mmol/L (98-107); SODIUM 136 mmol/L (136-145)
[2020-11-18 07:03] LABS: CALCIUM 7.7 mg/dL (8.5-10.1); CHOLESTEROL 112 mg/dL (50-200)
[2020-11-18 07:04] LABS: ANION GAP 6 MMOL/L (8-16); BLOOD UREA NITROGEN 13.8 mg/dL (7-18); CO2 32 mmol/L (21-32); GLUCOSE,RANDOM 118 mg/dL (74-106); LDL CHOLESTEROL (ONLY SJRH) 65 mg/dL (5-100); MAGNESIUM 1.7 mg/dL (1.8-2.4); TRIGLYCERIDES 166 mg/dL (0-150)
[2020-11-18 07:06] LABS: HDL CHOLESTEROL 25 mg/dL (40-60)
[2020-11-18 07:07] LABS: CREATININE < 0.2 mg/dL (0.55-1.3); SGOT/AST 69 U/L (15-37); SGPT/ALT 30 U/L (13-61)
[2020-11-18 07:08] LABS: PHOSPHOROUS 2.7 mg/dL (2.5-4.9); TOT PROT 5.2 g/dl (6.4-8.2)
[2020-11-18 07:21] LABS: ALK PHOS 165 U/L (45-117)
[2020-11-18] MEDS: ACETYLCYSTEINE 20% 200MG/ML 4 ML VIAL *FOR ORAL / INH USE ONLY NEB SCH ×4 (07:49→20:23)
[2020-11-18] MEDS: ALBUTEROL SO4 0.042% IH SOL 1.25 MG/3 ML VIAL.NEB NEB SCH ×4 (07:49→20:23)
[2020-11-18] MEDS ORDERED: CEFEPIME HCL 1 GM VIAL (RESTRICTED TO ID) ONE ×2 (09:19→21:06)
[2020-11-18] MEDS ORDERED: DEXTROSE 5%-WATER 100 ML IVPB ONE ×2 (09:20→21:06)
[2020-11-18] MEDS: AMINO ACIDS/PROTEIN HYDROLYS 30 ML LIQUID.PKT PO SCH ×2 (09:31→18:06)
[2020-11-18] MEDS: CEFEPIME 1 GM in DEXTROSE 5%-WATER 1 GM/100 ML BAG IVPB SCH ×2 (09:38→21:57)
[2020-11-18] MEDS: POTASSIUM CHLORIDE ORAL LIQUID 20 MEQ/15 ML NGT SCH (09:39)
[2020-11-18] MEDS: THIAMINE HCL 200 MG/2 ML VIAL IVPB SCH (09:39)
[2020-11-18] MEDS: PANTOPRAZOLE SODIUM 80 MG in SODIUM CHLORIDE 100 ML IVPB SCH ×2 (09:40→18:05)
[2020-11-18] MEDS: DIVALPROEX SODIUM 125 MG SPRINKLE CAPS PO SCH ×2 (09:40→21:57)
[2020-11-18] MEDS ORDERED: METOCLOPRAMIDE HCL INJECTION 10 MG/2 ML VIAL IVPUSH PRN (10:25)
[2020-11-18] MEDS: SENNOSIDES 8.8 MG/5 ML BULK BOTTLE PO SCH (21:12)
[2020-11-18] MEDS ORDERED: POTASSIUM CHLORIDE ORAL LIQUID 20 MEQ/15 ML NGT ONE (22:42)
[2020-11-19] MEDS ORDERED: PT OWN MED DRAWER 7, Y5N ONE ×6 (00:38→22:05)
[2020-11-19] MEDS: PANTOPRAZOLE SODIUM 80 MG in SODIUM CHLORIDE 100 ML IVPB SCH ×2 (04:39→13:20)
[2020-11-19] MEDS: CARBIDOPA/LEVODOPA 25/100 TABLET (FP) PO SCH ×3 (06:22→17:33)
[2020-11-19] MEDS: GABAPENTIN 250 MG/5 ML ORAL SOLUTION, 470 ML BOTTLE NGT SCH ×3 (06:22→22:11)
[2020-11-19] MEDS: ACETYLCYSTEINE 20% 200MG/ML 4 ML VIAL *FOR ORAL / INH USE ONLY NEB SCH ×4 (07:45→20:37)
[2020-11-19] MEDS: ALBUTEROL SO4 0.042% IH SOL 1.25 MG/3 ML VIAL.NEB NEB SCH ×4 (07:45→20:37)
[2020-11-19 08:57] LABS: BASO % 0.2 % (0-2.0); EOS % 1.6 % (0-4.5); HEMATOCRIT 31.3 % (32.4-45.2); HEMOGLOBIN 10.6 GM/dL (10.7-15.3); LYMPH % 6.4 % (8-40); MCH 29.9 pg (25.7-33.7); MCHC 33.9 g/dl (32.0-36.0); MEAN CELL VOLUME 88.3 fl (80-96); MEAN PLT VOLUME 7.4 fl (7.5-11.1); NEUT % 83.8 % (42.8-82.8); PLATELET COUNT 251 10^3/uL (134-434); RBC 3.54 M/mm3 (3.60-5.2); RDW 16.5 % (11.6-15.6); WHITE BLOOD COUNT 10.7 K/mm3 (4.0-10.0)
[2020-11-19 09:35] LABS: BLOOD UREA NITROGEN 13.1 mg/dL (7-18)
[2020-11-19 09:38] LABS: CREATININE 0.3 mg/dL (0.55-1.3)
[2020-11-19 09:39] LABS: PHOSPHOROUS 2.1 mg/dL (2.5-4.9)
[2020-11-19 09:40] LABS: TOT PROT 5.2 g/dl (6.4-8.2)
[2020-11-19] MEDS ORDERED: CEFEPIME HCL 1 GM VIAL (RESTRICTED TO ID) ONE ×2 (10:25→22:06)
[2020-11-19] MEDS ORDERED: DEXTROSE 5%-WATER 100 ML IVPB ONE ×2 (10:26→22:06)
[2020-11-19] MEDS: ACETAMINOPHEN 1000 MG/100 ML VIAL (NON FORMULARY) IVPB PRN ×2 (10:27→20:29)
[2020-11-19] MEDS: AMINO ACIDS/PROTEIN HYDROLYS 30 ML LIQUID.PKT PO SCH ×2 (10:27→17:33)
[2020-11-19] MEDS: DIVALPROEX SODIUM 125 MG SPRINKLE CAPS PO SCH ×2 (10:28→22:12)
[2020-11-19] MEDS: POTASSIUM CHLORIDE ORAL LIQUID 20 MEQ/15 ML NGT SCH (10:28)
[2020-11-19] MEDS: THIAMINE HCL 200 MG/2 ML VIAL IVPB SCH (10:29)
[2020-11-19] MEDS: CEFEPIME 1 GM in DEXTROSE 5%-WATER 1 GM/100 ML BAG IVPB SCH ×2 (11:13→22:12)
[2020-11-19] MEDS ORDERED: POTASSIUM CHLORIDE ORAL LIQUID 20 MEQ/15 ML PO ONE (11:18)
[2020-11-19] MEDS: SENNOSIDES 8.8 MG/5 ML BULK BOTTLE PO SCH (22:12)
[2020-11-20] MEDS ORDERED: PT OWN MED DRAWER 7, Y5N ONE ×5 (00:54→21:39)
[2020-11-20] MEDS: GABAPENTIN 250 MG/5 ML ORAL SOLUTION, 470 ML BOTTLE NGT SCH ×3 (05:52→22:15)
[2020-11-20] MEDS: CARBIDOPA/LEVODOPA 25/100 TABLET (FP) PO SCH ×3 (06:03→17:32)
[2020-11-20 07:10] LABS: BASO % 0.2 % (0-2.0); HEMATOCRIT 28.3 % (32.4-45.2); HEMOGLOBIN 9.5 GM/dL (10.7-15.3); LYMPH % 12.6 % (8-40); MCH 29.7 pg (25.7-33.7); MCHC 33.5 g/dl (32.0-36.0); MEAN CELL VOLUME 88.5 fl (80-96); MEAN PLT VOLUME 7.7 fl (7.5-11.1); MONO % 10.1 % (3.8-10.2); NEUT % 74.1 % (42.8-82.8); PLATELET COUNT 245 10^3/uL (134-434); RBC 3.19 M/mm3 (3.60-5.2); WHITE BLOOD COUNT 8.8 K/mm3 (4.0-10.0)
[2020-11-20 07:26] LABS: CHLORIDE 99 mmol/L (98-107); SODIUM 138 mmol/L (136-145)
[2020-11-20 07:28] LABS: CALCIUM 7.9 mg/dL (8.5-10.1)
[2020-11-20 07:29] LABS: ALBUMIN 1.8 g/dl (3.4-5.0); ANION GAP 6 MMOL/L (8-16); BLOOD UREA NITROGEN 16.3 mg/dL (7-18); CO2 33 mmol/L (21-32); GLUCOSE,RANDOM 130 mg/dL (74-106); MAGNESIUM 1.9 mg/dL (1.8-2.4)
[2020-11-20] MEDS: ALBUTEROL SO4 0.042% IH SOL 1.25 MG/3 ML VIAL.NEB NEB SCH ×4 (07:30→20:09)
[2020-11-20] MEDS: ACETYLCYSTEINE 20% 200MG/ML 4 ML VIAL *FOR ORAL / INH USE ONLY NEB SCH ×4 (07:30→20:08)
[2020-11-20 07:32] LABS: CREATININE < 0.2 mg/dL (0.55-1.3); PHOSPHOROUS 2.5 mg/dL (2.5-4.9); SGOT/AST 44 U/L (15-37); SGPT/ALT 15 U/L (13-61)
[2020-11-20 07:33] LABS: BILIRUBIN,TOTAL 0.8 mg/dL (0.2-1); TOT PROT 4.9 g/dl (6.4-8.2)
[2020-11-20 07:45] LABS: ALK PHOS 162 U/L (45-117)
[2020-11-20] MEDS ORDERED: CEFEPIME HCL 1 GM VIAL (RESTRICTED TO ID) ONE ×2 (09:25→21:39)
[2020-11-20] MEDS ORDERED: DEXTROSE 5%-WATER 100 ML IVPB ONE ×2 (09:25→21:39)
[2020-11-20] MEDS: CEFEPIME 1 GM in DEXTROSE 5%-WATER 1 GM/100 ML BAG IVPB SCH ×2 (10:58→22:13)
[2020-11-20] MEDS: POTASSIUM CHLORIDE ORAL LIQUID 20 MEQ/15 ML NGT SCH (10:59)
[2020-11-20] MEDS: AMINO ACIDS/PROTEIN HYDROLYS 30 ML LIQUID.PKT PO SCH ×2 (10:59→17:32)
[2020-11-20] MEDS: DIVALPROEX SODIUM 125 MG SPRINKLE CAPS PO SCH ×2 (10:59→22:13)
[2020-11-20] MEDS: PANTOPRAZOLE SODIUM 40 MG VIAL IVPUSH SCH (11:31)
[2020-11-20] MEDS: THIAMINE HCL 200 MG/2 ML VIAL IVPB SCH (12:41)
[2020-11-20] MEDS: SENNOSIDES 8.8 MG/5 ML BULK BOTTLE PO SCH (22:15)
[2020-11-21] MEDS: CARBIDOPA/LEVODOPA 25/100 TABLET (FP) PO SCH ×3 (06:06→17:12)
[2020-11-21] MEDS: GABAPENTIN 250 MG/5 ML ORAL SOLUTION, 470 ML BOTTLE NGT SCH ×3 (06:07→21:19)
[2020-11-21 08:21] LABS: BASO % 0.4 % (0-2.0); EOS % 2.8 % (0-4.5); HEMATOCRIT 28.3 % (32.4-45.2); HEMOGLOBIN 9.3 GM/dL (10.7-15.3); MCH 29.8 pg (25.7-33.7); MEAN CELL VOLUME 90.3 fl (80-96); MEAN PLT VOLUME 7.7 fl (7.5-11.1); MONO % 13.1 % (3.8-10.2); NEUT % 67.7 % (42.8-82.8); PLATELET COUNT 234 10^3/uL (134-434); RBC 3.13 M/mm3 (3.60-5.2); RDW 15.4 % (11.6-15.6); WHITE BLOOD COUNT 6.6 K/mm3 (4.0-10.0)
[2020-11-21 08:37] LABS: CHLORIDE 100 mmol/L (98-107); SODIUM 141 mmol/L (136-145)
[2020-11-21 08:39] LABS: CALCIUM 8.1 mg/dL (8.5-10.1)
[2020-11-21 08:40] LABS: ALBUMIN 1.7 g/dl (3.4-5.0); BLOOD UREA NITROGEN 12.1 mg/dL (7-18); GLUCOSE,RANDOM 134 mg/dL (74-106)
[2020-11-21 08:43] LABS: ANION GAP 8 MMOL/L (8-16); CO2 34 mmol/L (21-32); CREATININE < 0.2 mg/dL (0.55-1.3); SGOT/AST 56 U/L (15-37); SGPT/ALT 17 U/L (13-61)
[2020-11-21 08:45] LABS: BILIRUBIN,TOTAL 0.5 mg/dL (0.2-1); TOT PROT 4.7 g/dl (6.4-8.2)
[2020-11-21 08:46] LABS: ALK PHOS 154 U/L (45-117)
[2020-11-21] MEDS ORDERED: DEXTROSE 5%-WATER 100 ML IVPB ONE ×2 (08:49→21:11)
[2020-11-21] MEDS ORDERED: PT OWN MED DRAWER 7, Y5N ONE ×4 (08:49→21:11)
[2020-11-21] MEDS ORDERED: CEFEPIME HCL 1 GM VIAL (RESTRICTED TO ID) ONE ×2 (08:49→21:11)
[2020-11-21] MEDS: ACETYLCYSTEINE 20% 200MG/ML 4 ML VIAL *FOR ORAL / INH USE ONLY NEB SCH ×4 (09:40→20:18)
[2020-11-21] MEDS: PANTOPRAZOLE SODIUM 40 MG VIAL IVPUSH SCH (09:50)
[2020-11-21] MEDS: CEFEPIME 1 GM in DEXTROSE 5%-WATER 1 GM/100 ML BAG IVPB SCH ×2 (09:50→21:19)
[2020-11-21] MEDS: DIVALPROEX SODIUM 125 MG SPRINKLE CAPS PO SCH ×2 (09:50→21:19)
[2020-11-21] MEDS: POTASSIUM CHLORIDE ORAL LIQUID 20 MEQ/15 ML PO SCH (09:50)
[2020-11-21] MEDS: LACTOBACILLUS ACIDOPHILUS 1 TABLET PO SCH (09:50)
[2020-11-21] MEDS: AMINO ACIDS/PROTEIN HYDROLYS 30 ML LIQUID.PKT PO SCH ×2 (09:50→17:12)
[2020-11-21] MEDS: ALBUTEROL SO4 0.042% IH SOL 1.25 MG/3 ML VIAL.NEB NEB SCH ×3 (11:35→20:18)
[2020-11-21] MEDS: THIAMINE HCL 200 MG/2 ML VIAL IVPB SCH (11:47)
[2020-11-21] MEDS ORDERED: SENNOSIDES 8.8 MG/5 ML BULK BOTTLE PO PRN (22:00)
[2020-11-22] MEDS ORDERED: PT OWN MED DRAWER 7, Y5N ONE ×2 (01:06→21:21)
[2020-11-22] MEDS: GABAPENTIN 250 MG/5 ML ORAL SOLUTION, 470 ML BOTTLE NGT SCH ×3 (05:24→21:26)
[2020-11-22] MEDS: CARBIDOPA/LEVODOPA 25/100 TABLET (FP) PO SCH ×3 (06:09→17:13)
[2020-11-22 06:49] LABS: BASO % 0.3 % (0-2.0); EOS % 1.2 % (0-4.5); HEMATOCRIT 29.4 % (32.4-45.2); HEMOGLOBIN 9.7 GM/dL (10.7-15.3); MCH 29.4 pg (25.7-33.7); MEAN CELL VOLUME 89.1 fl (80-96); MEAN PLT VOLUME 7.4 fl (7.5-11.1); MONO % 13.8 % (3.8-10.2); NEUT % 71.7 % (42.8-82.8); PLATELET COUNT 303 10^3/uL (134-434); RDW 15.5 % (11.6-15.6); WHITE BLOOD COUNT 8.1 K/mm3 (4.0-10.0)
[2020-11-22 06:53] LABS: CHLORIDE 100 mmol/L (98-107); SODIUM 140 mmol/L (136-145)
[2020-11-22 07:00] LABS: ALBUMIN 1.8 g/dl (3.4-5.0); ANION GAP 5 MMOL/L (8-16); BLOOD UREA NITROGEN 12.7 mg/dL (7-18); CO2 35 mmol/L (21-32); GLUCOSE,RANDOM 137 mg/dL (74-106)
[2020-11-22 07:03] LABS: CREATININE < 0.2 mg/dL (0.55-1.3); SGOT/AST 86 U/L (15-37); SGPT/ALT 35 U/L (13-61)
[2020-11-22 07:04] LABS: BILIRUBIN,TOTAL 0.5 mg/dL (0.2-1); TOT PROT 4.8 g/dl (6.4-8.2)
[2020-11-22 07:05] LABS: ALK PHOS 157 U/L (45-117)
[2020-11-22] MEDS: ALBUTEROL SO4 0.042% IH SOL 1.25 MG/3 ML VIAL.NEB NEB SCH ×4 (07:30→20:40)
[2020-11-22] MEDS: ACETYLCYSTEINE 20% 200MG/ML 4 ML VIAL *FOR ORAL / INH USE ONLY NEB SCH ×4 (07:30→20:40)
[2020-11-22] MEDS ORDERED: CEFEPIME HCL 1 GM VIAL (RESTRICTED TO ID) ONE ×2 (09:59→21:21)
[2020-11-22] MEDS ORDERED: DEXTROSE 5%-WATER 100 ML IVPB ONE ×2 (09:59→21:21)
[2020-11-22] MEDS ORDERED: GLUCAGON 1 MG KIT IVPUSH ONE (12:40)
[2020-11-22] MEDS: KCL 10 MEQ IVPB 10 MEQ/100 ML INFUS.BAG IVPB SCH ×4 (13:54→17:13)
[2020-11-22] MEDS: CEFEPIME 1 GM in DEXTROSE 5%-WATER 1 GM/100 ML BAG IVPB SCH ×2 (13:55→21:28)
[2020-11-22] MEDS: POTASSIUM CHLORIDE ORAL LIQUID 20 MEQ/15 ML PO SCH (13:56)
[2020-11-22] MEDS: AMINO ACIDS/PROTEIN HYDROLYS 30 ML LIQUID.PKT PO SCH ×2 (13:56→17:14)
[2020-11-22] MEDS: DIVALPROEX SODIUM 125 MG SPRINKLE CAPS PO SCH ×2 (13:57→21:27)
[2020-11-22] MEDS: THIAMINE HCL 200 MG/2 ML VIAL IVPB SCH (13:58)
[2020-11-22] MEDS: PANTOPRAZOLE SODIUM 40 MG VIAL IVPUSH SCH (13:58)
[2020-11-22] MEDS: LACTOBACILLUS ACIDOPHILUS 1 TABLET PO SCH (13:59)
[2020-11-22] MEDS: ACETAMINOPHEN 1000 MG/100 ML VIAL (NON FORMULARY) IVPB PRN (17:50)
[2020-11-22] MEDS: BANATROL PLUS POWDER PACKET PEG SCH (21:41)
[2020-11-23] MEDS: BANATROL PLUS POWDER PACKET PEG SCH ×3 (05:19→21:22)
[2020-11-23] MEDS: GABAPENTIN 250 MG/5 ML ORAL SOLUTION, 470 ML BOTTLE NGT SCH ×3 (05:20→21:23)
[2020-11-23] MEDS: CARBIDOPA/LEVODOPA 25/100 TABLET (FP) PO SCH ×3 (06:05→17:30)
[2020-11-23 07:23] LABS: BASO % 0.2 % (0-2.0); EOS % 0.7 % (0-4.5); HEMATOCRIT 31.3 % (32.4-45.2); HEMOGLOBIN 10.5 GM/dL (10.7-15.3); LYMPH % 9.4 % (8-40); MCH 29.8 pg (25.7-33.7); MCHC 33.6 g/dl (32.0-36.0); MEAN CELL VOLUME 88.8 fl (80-96); MONO % 12.6 % (3.8-10.2); NEUT % 77.1 % (42.8-82.8); PLATELET COUNT 363 10^3/uL (134-434); RBC 3.52 M/mm3 (3.60-5.2); RDW 15.9 % (11.6-15.6); WHITE BLOOD COUNT 9.8 K/mm3 (4.0-10.0)
[2020-11-23] MEDS: ACETYLCYSTEINE 20% 200MG/ML 4 ML VIAL *FOR ORAL / INH USE ONLY NEB SCH ×4 (08:00→20:10)
[2020-11-23] MEDS: ALBUTEROL SO4 0.042% IH SOL 1.25 MG/3 ML VIAL.NEB NEB SCH ×4 (08:00→20:10)
[2020-11-23 08:10] LABS: CALCIUM 7.8 mg/dL (8.5-10.1)
[2020-11-23 08:11] LABS: ALBUMIN 1.9 g/dl (3.4-5.0)
[2020-11-23 08:14] LABS: CREATININE 0.2 mg/dL (0.55-1.3)
[2020-11-23 08:15] LABS: BILIRUBIN,TOTAL 0.6 mg/dL (0.2-1)
[2020-11-23 08:16] LABS: TOT PROT 5.1 g/dl (6.4-8.2)
[2020-11-23] MEDS ORDERED: PT OWN MED DRAWER 7, Y5N ONE ×2 (10:16→21:11)
[2020-11-23] MEDS: AMINO ACIDS/PROTEIN HYDROLYS 30 ML LIQUID.PKT PO SCH ×2 (10:30→17:30)
[2020-11-23] MEDS: LACTOBACILLUS ACIDOPHILUS 1 TABLET PO SCH (10:30)
[2020-11-23] MEDS: DIVALPROEX SODIUM 125 MG SPRINKLE CAPS PO SCH ×2 (10:30→21:23)
[2020-11-23] MEDS: POTASSIUM CHLORIDE ORAL LIQUID 20 MEQ/15 ML PO SCH (10:30)
[2020-11-23] MEDS: PANTOPRAZOLE SODIUM 40 MG VIAL IVPUSH SCH (10:30)
[2020-11-23] MEDS: THIAMINE HCL 200 MG/2 ML VIAL IVPB SCH (10:31)
[2020-11-23] MEDS: METOPROLOL TARTRATE 5 MG/5 ML VIAL IVPB PRN (12:51)
[2020-11-24] MEDS: BANATROL PLUS POWDER PACKET PEG SCH (06:02)
[2020-11-24] MEDS: CARBIDOPA/LEVODOPA 25/100 TABLET (FP) PO SCH ×3 (06:03→17:53)
[2020-11-24] MEDS: GABAPENTIN 250 MG/5 ML ORAL SOLUTION, 470 ML BOTTLE NGT SCH ×2 (06:03→14:58)
[2020-11-24] MEDS ORDERED: FUROSEMIDE 40 MG/4 ML INJECTABLE VIAL IVPUSH ONE (06:46)
[2020-11-24 07:46] LABS: CHLORIDE 102 mmol/L (98-107); SODIUM 140 mmol/L (136-145)
[2020-11-24 07:49] LABS: ANION GAP 7 MMOL/L (8-16); BLOOD UREA NITROGEN 11.6 mg/dL (7-18); CALCIUM 7.6 mg/dL (8.5-10.1); CO2 30 mmol/L (21-32); GLUCOSE,RANDOM 107 mg/dL (74-106)
[2020-11-24] MEDS: ACETYLCYSTEINE 20% 200MG/ML 4 ML VIAL *FOR ORAL / INH USE ONLY NEB SCH ×4 (08:03→20:15)
[2020-11-24] MEDS: ALBUTEROL SO4 0.042% IH SOL 1.25 MG/3 ML VIAL.NEB NEB SCH ×4 (08:03→20:15)
[2020-11-24 08:37] LABS: CREATININE < 0.2 mg/dL (0.55-1.3)
[2020-11-24] MEDS ORDERED: DIVALPROEX SODIUM 250 MG TABLET E.C. PO SCH (10:00)
[2020-11-24] MEDS: POTASSIUM CHLORIDE ORAL LIQUID 20 MEQ/15 ML PO SCH (10:16)
[2020-11-24] MEDS: LACTOBACILLUS ACIDOPHILUS 1 TABLET PO SCH (10:16)
[2020-11-24] MEDS: PANTOPRAZOLE SODIUM 40 MG VIAL IVPUSH SCH (10:16)
[2020-11-24] MEDS: AMINO ACIDS/PROTEIN HYDROLYS 30 ML LIQUID.PKT PO SCH (10:17)
[2020-11-24] MEDS: THIAMINE HCL 200 MG/2 ML VIAL IVPB SCH (10:17)
[2020-11-24] MEDS: METOPROLOL TARTRATE 5 MG/5 ML VIAL IVPB PRN (10:57)
[2020-11-24] MEDS ORDERED: VALPROATE SODIUM 250 MG/5 ML UNIT DOSE CUP NGT SCH (12:27)
[2020-11-24] MEDS ORDERED: PT OWN MED DRAWER 7, Y5N ONE (14:21)
[2020-11-24] MEDS ORDERED: ACETAMINOPHEN 1000 MG/100 ML VIAL (NON FORMULARY) IVPB ONE (17:36)
[2020-11-24] MEDS ORDERED: LINEZOLID 600 MG PREMIX BAG 600 MG/300 ML BAG IVPB ONE (20:05)
[2020-11-24] MEDS ORDERED: PIPERACILLIN/TAZOB 3.375 GM 3.375 GM in DEXTROSE 5%-WATER - 50 ML IVPB ONE (20:06)
[2020-11-24] MEDS ORDERED: RAPID SEQUENCE INTUBATION KIT NR ONE (20:20)
[2020-11-24 20:36] LABS: ARTERIAL BLD GAS O2 SATURATION 99.1 mmHg (95-98); ARTERIAL BLOOD GAS BASE EXCESS 3.1 mmol/L (-2-2); ARTERIAL BLOOD GAS pH 7.259 (7.350-7.450)
[2020-11-24 20:36] LABS: BASO % 0.2 % (0-2.0); HEMATOCRIT 31.7 % (32.4-45.2); HEMOGLOBIN 10.5 GM/dL (10.7-15.3); LYMPH % 8.3 % (8-40); MCH 29.3 pg (25.7-33.7); MEAN CELL VOLUME 88.7 fl (80-96); MEAN PLT VOLUME 6.9 fl (7.5-11.1); MONO % 13.1 % (3.8-10.2); NEUT % 78.4 % (42.8-82.8); PLATELET COUNT 659 10^3/uL (134-434); RBC 3.58 M/mm3 (3.60-5.2); RDW 16.1 % (11.6-15.6); WHITE BLOOD COUNT 23.2 K/mm3 (4.0-10.0)
[2020-11-24 20:38] LABS: ALLENS TEST POSITIVE; PT'S TEMP 101.6
[2020-11-24 20:43] LABS: INR 1.22 (0.83-1.09); PROTHROMBIN TIME (PATIENT) 14.9 SEC (9.7-13.0)
[2020-11-24 20:53] LABS: ALBUMIN 2.1 g/dl (3.4-5.0); BLOOD UREA NITROGEN 19.4 mg/dL (7-18); CALCIUM 8.2 mg/dL (8.5-10.1)
[2020-11-24 20:57] LABS: CREATININE 0.4 mg/dL (0.55-1.3)
[2020-11-24 20:59] LABS: BILIRUBIN,TOTAL 0.7 mg/dL (0.2-1); TOT PROT 5.9 g/dl (6.4-8.2)
[2020-11-24] MEDS ORDERED: SODIUM CHLORIDE 500 ML IV STA (21:04)
[2020-11-24 21:15] LABS: ANISOCYTOSIS 3+; MACROCYTOSIS 0; PLATELET ESTIMATE INCREASED
[2020-11-24] MEDS ORDERED: PROPOFOL 1,000,000 MCG/100 ML VIAL IVPB SCH (21:15)
[2020-11-24] MEDS ORDERED: VASOPRESSIN 40 UNITS in SODIUM CHLORIDE 98 ML IVPB SCH ×2 (21:15→21:18)
[2020-11-24 21:24] LABS: LACTIC ACID 2.2 mmol/L (0.4-2.0)
[2020-11-24] MEDS ORDERED: SODIUM CHLORIDE 1,000 ML IV STA (21:39)
[2020-11-24] MEDS ORDERED: NOREPINEPHRINE D5W PREMIX 16,000 MCG/500 ML BAG IVPB ONE (21:49)
[2020-11-24] MEDS ORDERED: NOREPINEPHRINE D5W PREMIX 16,000 MCG/500 ML BAG IVPB SCH (22:15)
[2020-11-24] MEDS ORDERED: EPINEPHrine 1:10,000 (P-F SYR) 1 MG/10 ML DISP.SYRIN ONE (22:32)
[2020-11-25 00:37] VITALS: BP 65/30; PULSE 95; TEMP 98.9
[2020-11-25] MEDS ORDERED: AMINO ACIDS/PROTEIN HYDROLYS 30 ML LIQUID.PKT PO SCH (08:00)
== END 2020-11-24 22:44 | disposition expired | DRG 177 ==
LOC: JER 12:13 → JERBED 13:34 → J6S 10-30 01:47 → J4S 11-17 02:17 → JICU 11-24 20:52
PROVIDERS: ADMIT Family Medicine; ATTEND Family Medicine
PROC: 0DH67UZ Insertion of Feeding Device into Stomach, Via Natural or Artificial Opening (ICD-10-PCS; principal; 2020-11-10)
PROC: 0D9670Z Drainage of Stomach with Drainage Device, Via Natural or Artificial Opening (ICD-10-PCS; 2020-11-16)
PROC: 30233N1 Transfusion of Nonautologous Red Blood Cells into Peripheral Vein, Percutaneous Approach (ICD-10-PCS; 2020-11-16)
DX: J69.0 Pneumonitis due to inhalation of food and vomit (principal); L89.154 Pressure ulcer of sacral region, stage 4; E43 Unspecified severe protein-calorie malnutrition; R64 Cachexia; Z68.1 Body mass index [BMI] 19.9 or less, adult; F03.90 Unspecified dementia, unspecified severity, without behavioral disturbance, psychotic disturbance, mood disturbance, and anxiety; R62.7 Adult failure to thrive; E88.09 Other disorders of plasma-protein metabolism, not elsewhere classified; G20 Parkinson's disease; K56.41 Fecal impaction; E87.6 Hypokalemia; R33.9 Retention of urine, unspecified; R82.81 Pyuria; R09.02 Hypoxemia; E86.1 Hypovolemia
CPT/HCPCS: 36415; 36430; 36600; 49440; 70450-TC; 71045-TC-FY; 71250-TC; 71275-TC; 74018-TC-FY; 74019-TC-FY; 80048; 80053; 80061; 80076; 81003; 82533; 82607; 82746; 82803; 82962; 83036; 83540; 83550; 83605; 83721; 83735; 83930; 83935; 84100; 84295; 84300; 84443; 84484; 84550; 85025; 85027; 85045; 85610; 85730; 86140; 86850; 86900; 86901; 86922; 87040; 87077; 87086; 87186; 87324; 87449; 93005; 93010; 94002; 94640; 97161-GP; 99285-25; C9803; J0131; J1644; P9058; Q9967; U0003; U0005